=== PATIENT | female | born 1995 | race Caucasian/White ===

== ENCOUNTER 2017-05-07 09:51 | Emergency (ER) | payer OTHER ==
--- NOTE | 2017-05-07 10:46 | EDPHY ---
[facility] General Narrative: CHIEF COMPLAINT: suicidal ideation HISTORY OF PRESENT ILLNESS: 21-year-old female presents to the emergency department voluntarily for increasing suicidal thoughts over the last week. Patient has a history of bipolar disorder and anxiety, she is taking her medication as prescribed. She reports increased life stressors and increased suicidal thoughts. She denies any plan. Patient denies drug or alcohol use. She denies homicidal ideations, auditory or visual hallucinations. REVIEW OF SYSTEMS: A comprehensive 10 point review of systems is otherwise negative aside from elements mentioned in the history of present illness. Physical Exam Gen: Alert and Oriented, NAD HEENT: PERRL, moist mucous membranes NECK: no meningismus CV: regular rate and regular rhythm PULM: CTAB, no wheezes ABDOMEN: soft, non tender to palpation, BS present BACK: No CVA tenderness NEURO: Neurologically grossly intact EXTREMITIES: normal appearing SKIN: no rash or break in skin on exposed skin PSYCH: SI, denies HI, denies auditory and visual hallucinations. Previous Psychiatric History: previous inpatient psychiatric admission, bipolar Smoking Status: Current some day smoker Time Patient Placed on Detainer: 10:25 Medical Decision Making: Pt evaluated by [facility]. The patient has contracted for safety and will be discharged with resources. She and her fiance are comfortable with this plan. Course: patient remained stable over course of my shift, no additional interventions, eval by [facility] - Objective Vital Signs: Initial Vital Signs Temperature (C) 36.8 C 05/07/17 10:04 Heart Rate 71 05/07/17 10:04 Respiratory Rate 20 05/07/17 10:04 Blood Pressure 112/69 05/07/17 10:04 O2 Sat (%) 96 05/07/17 10:04 O2 Delivery Mode Room Air Allergies/Adverse Reactions: acetaminophen Allergy (Verified 05/07/17 10:03) Home Medications: Medication Instructions Recorded LaMICtal 05/07/17 Trintellix 05/07/17 Xanax 05/07/17 Laboratory Results: Laboratory Results 05/07/17 11:03 05/07/17 11:03 05/07/17 05/07/17 05/07/17 11:03 11:03 10:30 WBC 3.92 10^3/uL 10^3/uL (3.80-9.50) RBC 3.55 10^6/uL L 10^6/uL (4.18-5.33) Hgb 12.2 g/dL L g/dL (12.6-16.3) Hct 36.0 % L % (38.0-47.0) MCV 101.4 fL H fL (81.5-99.8) MCH 34.4 pg H pg (27.9-34.1) MCHC 33.9 g/dL g/dL (32.4-36.7) RDW 13.4 % % (11.5-15.2) Plt Count 84 10^3/uL L 10^3/uL (150-400) MPV 11.5 fL fL (8.7-11.7) Neut % (Auto) 58.6 % % (39.3-74.2) Lymph % (Auto) 25.3 % % (15.0-45.0) Rabun % (Auto) 10.5 % % (4.5-13.0) Eos % (Auto) 4.3 % % (0.6-7.6) Baso % (Auto) 1.0 % % (0.3-1.7) Nucleat RBC Rel Count 0.0 % % (0.0-0.2) Absolute Neuts (auto) 2.30 10^3/uL 10^3/uL (1.70-6.50) Absolute Lymphs (auto) 0.99 10^3/uL L 10^3/uL (1.00-3.00) Absolute Monos (auto) 0.41 10^3/uL 10^3/uL (0.30-0.80) Absolute Eos (auto) 0.17 10^3/uL 10^3/uL (0.03-0.40) Absolute Basos (auto) 0.04 10^3/uL 10^3/uL (0.02-0.10) Absolute Nucleated RBC 0.00 10^3/uL 10^3/uL (0-0.01) Immature Gran % 0.3 % % (0.0-1.1) Immature Gran # 0.01 10^3/uL 10^3/uL (0.00-0.10) Sodium 140 mEq/L mEq/L (134-144) Potassium 4.1 mEq/L mEq/L (3.5-5.2) Chloride 107 mEq/L mEq/L (97-110) Carbon Dioxide 22 mEq/l mEq/l (22-31) Anion Gap 11 mEq/L mEq/L (8-16) BUN 7 mg/dL mg/dL (7-23) Creatinine 0.5 mg/dL L mg/dL (0.6-1.0) Estimated GFR > 60 Glucose 82 mg/dL mg/dL (70-100) Calcium 8.7 mg/dL mg/dL (8.5-10.4) Urine Test Urine Opiates Screen NEGATIVE (NEGATIVE) Urine Barbiturates NEGATIVE (NEGATIVE) Ur Phencyclidine Scrn NEGATIVE (NEGATIVE) Ur Amphetamine Screen NEGATIVE (NEGATIVE) U Benzodiazepines Scrn NEGATIVE (NEGATIVE) Urine Cocaine Screen NEGATIVE (NEGATIVE) U Marijuana (THC) Screen NON-NEGATIVE H (NEGATIVE) Ethyl Alcohol < 10 mg/dL mg/dL (0-10) 05/07/17 10:30 WBC RBC Hgb Hct MCV MCH MCHC RDW Plt Count MPV Neut % (Auto) Lymph % (Auto) Rabun % (Auto) Eos % (Auto) Baso % (Auto) Nucleat RBC Rel Count Absolute Neuts (auto) Absolute Lymphs (auto) Absolute Monos (auto) Absolute Eos (auto) Absolute Basos (auto) Absolute Nucleated RBC Immature Gran % Immature Gran # Sodium Potassium Chloride Carbon Dioxide Anion Gap BUN Creatinine Estimated GFR Glucose Calcium Urine Test NEGATIVE Urine Opiates Screen Urine Barbiturates Ur Phencyclidine Scrn Ur Amphetamine Screen U Benzodiazepines Scrn Urine Cocaine Screen U Marijuana (THC) Screen Ethyl Alcohol Departure - Departure Disposition: Home, Routine, Self-Care Clinical Impression: Severe major depression Condition: Good Instructions: Depression (ED) Additional Instructions: 1. Please follow-up with the mental health resources provided in the ED today. 2. [facility] does operate a 24/ psychiatric crisis unit located at [address] [place] [address]. The telephone number for the 24 hour crisis center is [phone]. 3. Please return to the ED if you are feeling suicidal, having thoughts of harming yourself/others or should you feel unsafe or have worsening symptoms. Referrals: Camilla Carpio MD [Primary Care Provider] - As per Instructions [facility],. [Clinic] - As per Instructions
[2017-05-07 11:08] LABS: % IMMATURE GRANULYOCYTES 0.3 % (0.0-1.1); ABSOLUTE IMMATURE GRANULOCYTES 0.01 10^3/uL (0.00-0.10); ADD DIFF? NO; ADD MORPH? NO; ADD SCAN? NO; ATYPICAL LYMPHOCYTE FLAG 10 (0-99); FRAGMENT RBC FLAG 0 (0-99); HEMOGLOBIN 12.2 g/dL (12.6-16.3); LEFT SHIFT FLG 0 (0-99); LIPEMIA HEMOLYSIS FLAG 90 (0-99); MEAN CELL HEMOGLOBIN 34.4 pg (27.9-34.1); MEAN CELL HEMOGLOBIN CONCENTR. 33.9 g/dL (32.4-36.7); MEAN CELL VOLUME 101.4 fL (81.5-99.8); MEAN PLATELET VOLUME 11.5 fL (8.7-11.7); PLATELET CLUMPS FLAG 0 (0-99); PLATELET COUNT 84 10^3/uL (150-400); RED BLOOD CELL COUNT 3.55 10^6/uL (4.18-5.33); RED CELL DISTRIBUTION WIDTH 13.4 % (11.5-15.2)
[2017-05-07 11:26] LABS: ANION GAP 11 mEq/L (8-16); CALCIUM 8.7 mg/dL (8.5-10.4); CARBON DIOXIDE 22 mEq/l (22-31); CHLORIDE 107 mEq/L (97-110); CREATININE 0.5 mg/dL (0.6-1.0); ETHANOL SERUM < 10 mg/dL (0-10); GLOMERULAR FILTRATION RATE > 60; GLUCOSE 82 mg/dL (70-100); POTASSIUM 4.1 mEq/L (3.5-5.2); SODIUM 140 mEq/L (134-144)
[2017-05-07 14:08] VITALS: BP 125/57; PULSE 88; RESP 16; TEMP 97.7; O2SAT 98
== END 2017-05-07 14:06 | disposition home or self-care (01) ==
DX: F32.2 Major depressive disorder, single episode, severe without psychotic features (principal); F17.200 Nicotine dependence, unspecified, uncomplicated
CPT/HCPCS: 80305; G0480

== ENCOUNTER → 2017-06-10 | Outpatient (CLI) | payer OTHER ==
[~2017-06-10] MED LIST: GADOBUTROL 10 ML VIAL IVP ONE
== END ==
LOC: FIMAGING 06:48
PROVIDERS: ATTEND Internal Medicine
DX: K74.60 Unspecified cirrhosis of liver (principal); D73.5 Infarction of spleen
CPT/HCPCS: A9585

== ENCOUNTER 2017-06-29 14:37 | Inpatient (IN) | payer OTHER ==
--- NOTE | 2017-06-29 14:48 | EDPHY ---
H & P Stated Complaint: abd pain, diarrhea, sent by GI Dr Ann Time Seen by Provider: 06/29/17 14:48 HPI/ROS: CHIEF COMPLAINT: Abdominal pain HISTORY OF PRESENT ILLNESS: The patient presents to the ED with several days of left upper quadrant pain. The patient has a history of biliary atresia status post biliary reconstruction as an . She has a history of splenic artery aneurysm treated with embolization in October of this year. The patient reports she has developed left upper quadrant pain nausea and moderate abdominal pain over the past day. She has developed some dark urine. The patient denies prior history of chronic abdominal pain. She complains of some pain in her left flank. The patient denies any diarrhea. She denies dysuria. She denies additional complaints. REVIEW OF SYSTEMS: A comprehensive 10 point review of systems is otherwise negative aside from elements mentioned in the history of present illness. Source: Patient Exam Limitations: No limitations - Personal History LMP (Females 10-55): Over 28 Days Ago Current Tetanus/Diphtheria Vaccine: Yes Current Tetanus Diphtheria and Acellular Pertussis (TDAP): Yes - Medical/Surgical History Hx Asthma: No Hx Chronic Respiratory Disease: No Hx Diabetes: No Hx Cardiac Disease: No Hx Renal Disease: No Hx Cirrhosis: No Hx Alcoholism: No Hx HIV/AIDS: No Hx Splenectomy or Spleen Trauma: No Other PMH: spleenic arterial embolism/kasai procedure/biliary atresia - Social History Smoking Status: Current some day smoker - Physical Exam Exam: General Appearance: Alert, no distress Eyes: Pupils equal and round no pallor or injection ENT, Mouth: Mucous membranes moist Respiratory: There are no retractions, lungs are clear to auscultation Cardiovascular: Regular rate and rhythm Gastrointestinal: Tenderness to palpation left upper quadrant, no CVA tenderness Neurological: A&O, normal motor function, normal sensory exam, normal cranial nerves Skin: Warm and dry, no rashes Musculoskeletal: Neck is supple nontender Extremities: symmetrical, full range of motion Constitutional: Initial Vital Signs Temperature (C) 36.8 C 06/29/17 14:41 Heart Rate 86 06/29/17 14:41 Respiratory Rate 16 06/29/17 14:41 Blood Pressure 133/86 H 06/29/17 14:41 O2 Sat (%) 98 06/29/17 14:41 O2 Delivery Mode Room Air Allergies/Adverse Reactions: acetaminophen Allergy (Verified 05/07/17 10:03) Home Medications: Medication Instructions Recorded LaMICtal 05/07/17 Trintellix 05/07/17 Xanax 05/07/17 Medical Decision Making - Diagnostics Imaging Results: Imaging Impressions Abdomen/Pelvis CT 06/29/17 15:47 Impression: 1. Tiny 1 mm nonobstructive calculus mid left kidney. No evidence of significant nephrolithiasis. 2. Heterogeneous attenuation of the liver similar to the prior study in this patient with history of biliary atresia and Kasai procedure. 3. Stable mild splenomegaly. Lobulated contour inferior margin of the spleen similar to prior MRI study probably from sequela of previous splenic infarction adjacent to this lobulated component. 4. Decrease in size of thrombosed splenic artery aneurysm following embolization procedure. 5. Air-filled loops of large and small bowel without significant distention. Possible mild ileus.. Attention: This CT examination is specifically designed to evaluate patients who are clinically suspected of having acute obstructive uropathy. This examination does not use radiographic contrast, and as such, provides only a limited evaluation of the abdomen, pelvis and retroperitoneum. If there is further clinical suspicion for pathological conditions other than obstructive uropathy, a complete CT evaluation of the abdomen and pelvis utilizing intravenous, oral, and rectal contrast should be considered. Findings discussed with Tenzin Barney at 17:04 hour, 06/29/2017. ED Course/Re-evaluation: This the ED with complaints of left upper abdominal pain and loose stool. The patient has a history of biliary atresia and splenic artery aneurysm which was recently embolized. The patient did have some abnormal liver function test noted several weeks ago. She did have a follow-up abdominal MRI performed which has been reviewed by Dr. Ann. The patient was taken for CT scan of the abdomen pelvis which demonstrates no evidence of any acute intra-abdominal pathology. The patient is noted to have elevations of her total bilirubin and conjugated bilirubin from several weeks ago. I discussed the case with Dr. Ann. Initially the plan would be to discharge the patient home with repeat liver function test next week. The patient however tells me she is having severe unexplained pain. She feels the pain is now migrated to the right upper quadrant. The gastroenterology service has been updated of the patient's admission to the hospital. She will be admitted by the hospitalist. Consultation was made with Dr. Grullon. I spoke with Dr. Ab Siu from Gastroenterology informing him of the patient' s admission to the hospital. Differential Diagnosis: Differential diagnosis considered includes biliary obstruction, pancreatitis, gastroenteritis, mesenteric adenitis, nephrolithiasis, ureterolithiasis - Data Points Laboratory Results: Laboratory Results 06/29/17 15:00 06/29/17 15:00 06/29/17 06/29/17 06/29/17 15:00 15:00 15:00 WBC RBC Hgb Hct MCV MCH MCHC RDW Plt Count MPV Neut % (Auto) Lymph % (Auto) Larue % (Auto) Eos % (Auto) Baso % (Auto) Nucleat RBC Rel Count Absolute Neuts (auto) Absolute Lymphs (auto) Absolute Monos (auto) Absolute Eos (auto) Absolute Basos (auto) Absolute Nucleated RBC Immature Gran % Immature Gran # Sodium 136 mEq/L mEq/L (134-144) Potassium 3.6 mEq/L mEq/L (3.5-5.2) Chloride 107 mEq/L mEq/L (97-110) Carbon Dioxide 22 mEq/l mEq/l (22-31) Anion Gap 7 mEq/L L mEq/L (8-16) BUN 7 mg/dL mg/dL (7-23) Creatinine 0.5 mg/dL L mg/dL (0.6-1.0) Estimated GFR > 60 Glucose 89 mg/dL mg/dL (70-100) Calcium 8.4 mg/dL L mg/dL (8.5-10.4) Total Bilirubin 4.2 mg/dL H mg/dL (0.1-1.4) Conjugated Bilirubin 2.9 mg/dL H mg/dL (0.0-0.5) Unconjugated Bilirubin 1.3 mg/dL H mg/dL (0.0-1.1) AST 123 IU/L H IU/L (14-46) ALT 87 IU/L H IU/L (9-52) Alkaline Phosphatase 431 IU/L H IU/L (38-126) Total Protein 7.2 g/dL g/dL (6.3-8.2) Albumin 3.4 g/dL L g/dL (3.5-5.0) Lipase 144 IU/L IU/L (23-300) Beta HCG, Qual NEGATIVE Urine Color KIRILL Urine Appearance HAZY Urine pH 5.0 (5.0-7.5) Ur Specific [place] 1.026 (1.002-1.030) Urine Protein NEGATIVE (NEGATIVE) Urine Ketones NEGATIVE (NEGATIVE) Urine Blood NEGATIVE (NEGATIVE) Urine Nitrate NEGATIVE (NEGATIVE) Urine Bilirubin TNP Urine Urobilinogen TNP Ur Leukocyte Esterase NEGATIVE (NEGATIVE) Urine RBC 1-3 /hpf /hpf (0-3) Urine WBC 5-10 /hpf H /hpf (0-3) Ur Epithelial Cells 1+ /lpf /lpf (NONE-1+) Calcium Oxalate Crystal PRESENT /hpf /hpf (NONE-1+) Urine Mucus 4+ /lpf H /lpf (NONE-1+) Urine Glucose NEGATIVE (NEGATIVE) 06/29/17 15:00 WBC 5.74 10^3/uL 10^3/uL (3.80-9.50) RBC 3.44 10^6/uL L 10^6/uL (4.18-5.33) Hgb 12.0 g/dL L g/dL (12.6-16.3) Hct 33.9 % L % (38.0-47.0) MCV 98.5 fL fL (81.5-99.8) MCH 34.9 pg H pg (27.9-34.1) MCHC 35.4 g/dL g/dL (32.4-36.7) RDW 13.2 % % (11.5-15.2) Plt Count 84 10^3/uL L 10^3/uL (150-400) MPV 12.8 fL H fL (8.7-11.7) Neut % (Auto) 63.8 % % (39.3-74.2) Lymph % (Auto) 21.3 % % (15.0-45.0) Larue % (Auto) 11.1 % % (4.5-13.0) Eos % (Auto) 3.0 % % (0.6-7.6) Baso % (Auto) 0.5 % % (0.3-1.7) Nucleat RBC Rel Count 0.0 % % (0.0-0.2) Absolute Neuts (auto) 3.66 10^3/uL 10^3/uL (1.70-6.50) Absolute Lymphs (auto) 1.22 10^3/uL 10^3/uL (1.00-3.00) Absolute Monos (auto) 0.64 10^3/uL 10^3/uL (0.30-0.80) Absolute Eos (auto) 0.17 10^3/uL 10^3/uL (0.03-0.40) Absolute Basos (auto) 0.03 10^3/uL 10^3/uL (0.02-0.10) Absolute Nucleated RBC 0.00 10^3/uL 10^3/uL (0-0.01) Immature Gran % 0.3 % % (0.0-1.1) Immature Gran # 0.02 10^3/uL 10^3/uL (0.00-0.10) Sodium Potassium Chloride Carbon Dioxide Anion Gap BUN Creatinine Estimated GFR Glucose Calcium Total Bilirubin Conjugated Bilirubin Unconjugated Bilirubin AST ALT Alkaline Phosphatase Total Protein Albumin Lipase Beta HCG, Qual Urine Color Urine Appearance Urine pH Ur Specific [place] Urine Protein Urine Ketones Urine Blood Urine Nitrate Urine Bilirubin Urine Urobilinogen Ur Leukocyte Esterase Urine RBC Urine WBC Ur Epithelial Cells Calcium Oxalate Crystal Urine Mucus Urine Glucose Medications Given: Discontinued Medications Sodium Chloride (Ns) 1,000 mls @ 0 mls/hr IV EDNOW ONE; Wide Open PRN Reason: Protocol Stop: 06/29/17 14:54 Last Admin: 06/29/17 15:18 Dose: 1,000 mls Morphine Sulfate (Morphine) 4 mg IVP EDNOW ONE Stop: 06/29/17 15:23 Last Admin: 06/29/17 15:31 Dose: 4 mg Morphine Sulfate (Morphine) 4 mg IVP EDNOW ONE Stop: 06/29/17 16:14 Last Admin: 06/29/17 16:19 Dose: 4 mg Ondansetron HCl (Zofran) 4 mg IVP EDNOW ONE Stop: 06/29/17 15:33 Last Admin: 06/29/17 15:35 Dose: 4 mg Departure - Departure Disposition: [facility] Inpatient Acute Clinical Impression: Abdominal pain, Biliary atresia, Abnormal liver function test Condition: Good Referrals: Jeremiah Sifuentes [Primary Care Provider] - As per Instructions
[2017-06-29] MEDS ORDERED: NS 1,000 ML IV ONE (14:53)
[2017-06-29 15:08] LABS: % IMMATURE GRANULYOCYTES 0.3 % (0.0-1.1); ABSOLUTE IMMATURE GRANULOCYTES 0.02 10^3/uL (0.00-0.10); ADD DIFF? NO; ADD MORPH? NO; ADD SCAN? NO; ATYPICAL LYMPHOCYTE FLAG 20 (0-99); FRAGMENT RBC FLAG 0 (0-99); HEMATOCRIT 33.9 % (38.0-47.0); LEFT SHIFT FLG 0 (0-99); LIPEMIA HEMOLYSIS FLAG 90 (0-99); MEAN CELL HEMOGLOBIN 34.9 pg (27.9-34.1); MEAN CELL HEMOGLOBIN CONCENTR. 35.4 g/dL (32.4-36.7); MEAN CELL VOLUME 98.5 fL (81.5-99.8); MEAN PLATELET VOLUME 12.8 fL (8.7-11.7); PLATELET CLUMPS FLAG 10 (0-99); PLATELET COUNT 84 10^3/uL (150-400); RED BLOOD CELL COUNT 3.44 10^6/uL (4.18-5.33); RED CELL DISTRIBUTION WIDTH 13.2 % (11.5-15.2)
[2017-06-29 15:19] LABS: ALANINE AMINOTRANSFERASE 87 IU/L (9-52); ALBUMIN 3.4 g/dL (3.5-5.0); ALKALINE PHOSPHATASE 431 IU/L (38-126); ANION GAP 7 mEq/L (8-16); ASPARTATE AMINOTRANSFERASE 123 IU/L (14-46); BILIRUBIN,TOTAL 4.2 mg/dL (0.1-1.4); BILIRUBIN-CONJUGATED 2.9 mg/dL (0.0-0.5); BILIRUBIN-UNCONJUGATED 1.3 mg/dL (0.0-1.1); CALCIUM 8.4 mg/dL (8.5-10.4); CARBON DIOXIDE 22 mEq/l (22-31); CHLORIDE 107 mEq/L (97-110); CREATININE 0.5 mg/dL (0.6-1.0); GLOMERULAR FILTRATION RATE > 60; GLUCOSE 89 mg/dL (70-100); POTASSIUM 3.6 mEq/L (3.5-5.2); SODIUM 136 mEq/L (134-144); TOTAL PROTEIN 7.2 g/dL (6.3-8.2)
[2017-06-29] MEDS ORDERED: ONDANSETRON 4 MG/2 ML VIAL IVP ONE (15:32)
[2017-06-29 15:54] LABS: COLOR AMBER; LEUKOCYTE ESTERASE,URINE NEGATIVE (NEGATIVE); NITRITE,URINE NEGATIVE (NEGATIVE)
[2017-06-29 16:02] LABS: MUCUS 4+ /lpf (NONE-1+)
[2017-06-29] MEDS ORDERED: oxyCODONE IR 5 MG TAB PO ONE (18:09)
--- NOTE | 2017-06-29 21:51 | HOSPPROG ---
Hospitalist Progress Note Assessment/Plan: HISTORY: This patient with chronic abdominal issues, comes in to the ER with new symptoms that started 3 days ago. She has new onset of frequent loose stools, with no fever or blood, and has some sharp and crampy pain migrating back and forth across her upper abdomen. No nausea or vomiting, no blood instool, no sob , no urinary sxs. No recent travel, no intake of outdoor huynh, no suspicious foods eaten, no ill contacts. 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 She had a stent placed in a splenic artery aneurysm recently, and has received a diagnosis of cirrhosis, the cause of which is not known to me at present. She has chronic elevations of liver enzymes including TAs and alk phos. She has chronic vague L mid abdominal ache with eating which became a bit worse around 3 months ago. Since then she is using cannabis oils with partial relief of that symptom. 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 Vital signs: normal with no fever Exam: alert oriented mildly anxious skin warm and dry, very mild jaundice resps easy lungs clear heart reg abd soft nondistended, +BS, some tenderness in epigastrium with no rebound or guarding, no hernia ormass extremities normal lab data: Mild AST, ALT, and Alk Phos increases, all better than 2 weeks ago Her bilirubin is 4 with baseline of 2 CT abdomen done in ER without contrast (?concern there for a stone), I have reviewed images, there is no obstruction, no inflammation, no ascites, no abscess, a tiny L renal stone is present IMPRESSION: -likely viral gastroenteritis as cause of diarrhea -increase in bilirubin could be viral or related to her chronic abdominal issues -hx of cirrhosis and biliary atresia, seems stable at present -renal stone present, lifelong daily adequate hydration important PLANS: -observation stay for pain management and hydration -GI pathogen panel -repeat liver panel in am -stressed lifelong daily hydration due to renal stone Objective: Vital Signs Temp Pulse Resp BP Pulse Ox 37.2 C 83 18 122/67 H 96 06/29/17 20:53 06/29/17 20:53 06/29/17 20:53 06/29/17 20:53 06/29/17 20:53 06/28/17 06/29/17 06/30/17 06:59 06:59 06:59 Intake Total 1000 Balance 1000 ICD10 Worksheet Patient Problems: Problems Problem Status Onset Abdominal pain Acute Abnormal liver function test Acute Biliary atresia Acute
[2017-06-29] MEDS ORDERED: ZOLPIDEM TARTRATE 5 MG TAB PO PRN (21:52)
[2017-06-29] MEDS ORDERED: NS 1,000 ML IV SCH (22:00)
[2017-06-29] MEDS: ONDANSETRON 4 MG/2 ML VIAL IVP PRN (22:27)
[2017-06-29] MEDS: HYDROmorphone HCL/NS/PF 0.4 MG/2 ML SYR IVP PRN (22:27)
[2017-06-29] MEDS ORDERED: QUEtiapine FUMARATE 50 MG TAB PO PRN (22:59)
[2017-06-30] MEDS: HYDROmorphone HCL/NS/PF 0.4 MG/2 ML SYR IVP PRN ×4 (02:28→15:26)
[2017-06-30 05:16] LABS: % IMMATURE GRANULYOCYTES 0.3 % (0.0-1.1); ABSOLUTE IMMATURE GRANULOCYTES 0.01 10^3/uL (0.00-0.10); ADD DIFF? NO; ADD MORPH? NO; ADD SCAN? NO; ATYPICAL LYMPHOCYTE FLAG 30 (0-99); FRAGMENT RBC FLAG 0 (0-99); HEMATOCRIT 29.2 % (38.0-47.0); HEMOGLOBIN 10.2 g/dL (12.6-16.3); LEFT SHIFT FLG 0 (0-99); LIPEMIA HEMOLYSIS FLAG 90 (0-99); MEAN CELL HEMOGLOBIN 34.9 pg (27.9-34.1); MEAN CELL HEMOGLOBIN CONCENTR. 34.9 g/dL (32.4-36.7); MEAN PLATELET VOLUME 12.8 fL (8.7-11.7); PLATELET CLUMPS FLAG 0 (0-99); PLATELET COUNT 55 10^3/uL (150-400); RED BLOOD CELL COUNT 2.92 10^6/uL (4.18-5.33); RED CELL DISTRIBUTION WIDTH 13.1 % (11.5-15.2)
[2017-06-30 05:32] LABS: ALANINE AMINOTRANSFERASE 67 IU/L (9-52); ALBUMIN 2.4 g/dL (3.5-5.0); ALKALINE PHOSPHATASE 310 IU/L (38-126); ANION GAP 7 mEq/L (8-16); ASPARTATE AMINOTRANSFERASE 85 IU/L (14-46); BILIRUBIN,TOTAL 3.8 mg/dL (0.1-1.4); CALCIUM 7.5 mg/dL (8.5-10.4); CARBON DIOXIDE 23 mEq/l (22-31); CHLORIDE 110 mEq/L (97-110); CREATININE 0.5 mg/dL (0.6-1.0); GLOMERULAR FILTRATION RATE > 60; GLUCOSE 76 mg/dL (70-100); POTASSIUM 3.4 mEq/L (3.5-5.2); SODIUM 140 mEq/L (134-144); TOTAL PROTEIN 5.6 g/dL (6.3-8.2)
[2017-06-30 06:10] LABS: BILIRUBIN-CONJUGATED 2.5 mg/dL (0.0-0.5); BILIRUBIN-UNCONJUGATED 1.3 mg/dL (0.0-1.1)
[2017-06-30] MEDS: diphenhydrAMINE 25 MG CAP PO PRN ×3 (08:51→22:57)
[2017-06-30] MEDS: ONDANSETRON 4 MG/2 ML VIAL IVP PRN (11:13)
--- NOTE | 2017-06-30 11:41 | ASMTCMCOM ---
CM Note CM Note Notes: Spoke w/RN, anticipate pt will dc home w/support of boyfriend when medically stable. CM available for any changes. Date Signed: 06/30/2017 11:40 AM Electronically Signed By:Tuyet Abdul RN
--- NOTE | 2017-06-30 13:55 | HOSPPROG ---
Hospitalist Progress Note Assessment/Plan: 22-year-old female presents emergency room complaints of abdominal pain. Long- standing history of abdominal issues. 1st encounter, chart reviewed. Discussed with Dr. Siu of Gastroenterology. # abdominal pain Improved today In the setting of chronic abdominal issues Appreciate Dr. Siu Continue supportive care No intention for intervention at this time # elevated LFTs Close to baseline Improving # history of biliary atresia and splenic aneurysm Appears stable # anemia Stable # disposition Changed to inpatient status Patient requiring overnight observation Further evaluation in the hospital setting required Unable to tolerate oral intake at this time For discharge in 1-2 days of improving Subjective: Feeling a bit better this morning. Still having some abdominal pain. Anxious about situation. Objective: Vital Signs Temp Pulse Resp BP Pulse Ox 37 C 76 12 128/78 H 98 06/30/17 08:00 06/30/17 08:00 06/30/17 08:00 06/30/17 08:00 06/30/17 08:00 Laboratory Results 06/30/17 04:48 06/30/17 04:48 06/29/17 06/30/17 07/01/17 05:59 05:59 05:59 Intake Total 1000 Balance 1000 - Physical Exam Constitutional: no apparent distress, appears nourished, uncomfortable Eyes: PERRL, anicteric sclera, EOMI Ears, Nose, Mouth, Throat: moist mucous membranes, hearing normal, ears appear normal Cardiovascular: regular rate and rhythym, No JVD, No edema Respiratory: no respiratory distress, no rales or rhonchi, reduced air movement Gastrointestinal: tenderness, No ascites, No guarding Skin: warm, normal color, No erythema Musculoskeletal: full muscle strength, normal joint ROM, no joint effusions Neurologic: AAOx3 Psychiatric: interacting appropriately, not encephalopathic, thought process linear ICD10 Worksheet Patient Problems: Problems Problem Status Onset Abdominal pain Acute Biliary atresia Acute Abnormal liver function test Acute
--- NOTE | 2017-06-30 15:53 | PDMN ---
Medical Necessity Medical necessity: M05 abd pain undg. elevated LFT's, anemia, unable to tolerate PO at this time, further monitoring and tx needed > 2 midnights pt still receiving IV pain meds, IV Zofran, IVF
[2017-06-30] MEDS: oxyCODONE IR 5 MG TAB PO PRN ×2 (18:56→22:57)
[2017-06-30] MEDS ORDERED: IOPAMIDOL (ISOVUE-300) 100 ML BTL ONE (20:02)
[2017-06-30] MEDS ORDERED: lamoTRIgine 100 MG TAB PO SCH (21:00)
[2017-06-30] MEDS ORDERED: LITHIUM CARBONATE ER 300 MG TAB PO SCH (21:00)
[2017-06-30] MEDS ORDERED: QUEtiapine FUMARATE 50 MG TAB PO SCH (21:00)
--- NOTE | 2017-06-30 21:08 | GCON ---
[f rep st] CONSULTATION DATE OF CONSULTATION: 06/30/2017 REFERRING PHYSICIAN: Venkat Grullon MD REASON FOR CONSULTATION: Thank you very kindly for asking me to evaluate this patient in consultatio n for a chief complaint of abdominal pain. HISTORY OF PRESENT ILLNESS: She was admitted yesterday through the emergency room after being sent t here by our office for increased amount of epigastric left-sided and right-sided abdominal pain that was described as severe. The patient has a very complex past medical history, with congenital biliar y atresia, who underwent a diverting Kasai procedure at 3 weeks of life (hepaticoportojejunostomy). She has had complications of the development of cirrhosis based on a liver biopsy 2 years ago. She i s known to have varices, and enlarged spleen which has been complicated by a splenic artery aneurysm that was embolized in October at [facility] in [place]. It sounds like there had bee n a change in the size of her splenic aneurysm from 4 to about 6 cm that was associated with left upp er quadrant abdominal pain, so the decision was made to embolize it. This is of relevance because elizabet darby had a significant amount of abdominal pain and even diarrhea after the embolization. Currently, the patient's pain is better. She had a CT scan without contrast of the abdomen and pelvi s on admission thinking perhaps she had a kidney stone, and while this did show a small 4 mm stone in the left kidney, it was nonobstructing. Her urine did have calcium oxalate crystals. While the CT was not normal, given her enlarged spleen and aneurysm and other findings, these were stable without major differences from her previous imaging and no acute process was found to explain her abdominal p ain. She had been noted in the ER also to have a slight increase in her bilirubin from baseline, wit h a total bilirubin of 4.2 and some mild transaminitis. These have improved again this morning back to baseline, which I believe is due to her chronic cirrhosis. She denies any change in mental status , fever, nausea, vomiting, hematochezia or melena. She had noted the onset of some loose, somewhat m ore frequent stool patterning with the onset of the pain but has not had any further bowel movements since admission. I am asked to assist with further evaluation and management. PAST MEDICAL HISTORY: 1. Significant for congenital biliary atresia. 2. Cirrhosis, likely related to the same process due to chronic biliary obstruction despite its dive rsion surgically at a young age. 3. Portal hypertension complicated by varices. 4. 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 5. Splenic artery aneurysm status post embolization in October of this year. 6. Depression and anxiety disorder. PAST SURGICAL HISTORY: A Kasai procedure (hepaticoportojejunostomy), splenic artery embolization. FAMILY HISTORY: Negative for liver disease. MEDICATIONS: Admissions include Lamictal, Trintellix and Xanax. 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 She is single but has a stabl e significant other. She is permanently a resident in [place], [place]. She smokes occasionally. No alcoholism. No history of substance abuse. REVIEW OF SYSTEMS: CONSTITUTIONAL: Denies fever, chills, weight loss, or night sweats. Denies phyllis dice. HEENT: No headache, visual disturbances, difficulty swallowing, rhinorrhea or ear pain. PULM ONARY: No cough or shortness of breath. CARDIOVASCULAR: No chest pain or palpitations. GI: She h as reported some loose stools without blood. Generalized abdominal pain involving both the right and left side as well as the lower left quadrant. She says this is a sharp stabbing pain with some cram ping overtones. They can become quite intense and be close to an 8/10 in severity. RHEUMATOLOGIC: No joint pain or swelling. DERMATOLOGIC: No jaundice, rash or pruritus. NEUROLOGIC: No difficulti es with thinking or cognition. No paresthesias. No seizures. No falls. No tremor. GENITOURINARY: No dysuria, hematuria, or flank pain. GYNECOLOGIC: No vaginal discharge or bleeding. A test from the ER was negative. PHYSICAL EXAM: VITAL SIGNS: Blood pressure 128/78 with a pulse of 76, respirations are 12, oxygenat ion 98% on room air. Temperature is 37. GENERAL: Anxious female in no acute distress. Intermitten tly tearful during the exam. HEENT: Sclerae have very mild icterus. No erythema. Neck is supple. Oropharynx is clear. No lymphadenopathy to the anterior or posterior cervical chain. LUNGS: Clear to auscultation bilaterally. CARDIOVASCULAR: Regular rate and rhythm without murmur, rub, or brice p. ABDOMEN: Soft, scaphoid. Normal bowel sounds. Right upper quadrant surgical scar is well heale d without herniation. Diffuse tenderness to palpation, worse in the left lower quadrant. No rebound or guarding. I cannot palpate an enlarged liver but I believe the spleen tip is palpable and slight ly tender. No abdominal bruit. No ascites. EXTREMITIES: Normal gait and station without joint def ormities. SKIN: Is tattooed without overt jaundice or rash. No hives. NEUROLOGIC: Alert to perso n, place, and time. Cranial nerves normal. No asterixis. Nonfocal motor exam. Gait is not ataxic. DATABASE: Includes the following. White blood count is 3.7, hematocrit is 29.2 with an MCV of 100, platelets are 55. Sodium 140, potassium 3.4, chloride 110, bicarbonate 23, BUN is 5, creatinine 0.5, total bilirubin is 3.8, AST is 85, ALT 67, alkaline phosphatase is 310, albumin 2.4. Beta HCG is ne gative. Urinalysis is positive for calcium oxalate crystals, 5-10 white cells, negative leukocyte es terase, negative nitrate, negative glucose, negative blood. IMAGING: Includes a CT scan of the abdomen and pelvis without oral or IV contrast. There is a tiny 1 mm nonobstructing calculus in the midportion of the left kidney. No other renal calculi are seen. The ureters are nondilated. The bladder is normal in contour. The lungs bases are clear. The live r is diffusely heterogeneous with an increased coarse echotexture likely related to chronic cirrhosis . The spleen is enlarged at 13 x 11 x 7 cm. There is a lobulated component in the inferior aspect o f the spleen that is similar to previous recent MRI. The splenic artery aneurysm is decreased in siz e, now measuring 5 x 3.4 (previously 7 x 4.3 cm) with embolization coils in the posterior margins of the aneurysm. Numerous collateral vessels are seen within the left side of the mesentery of the abdo men and pelvis, likely representing varices. The gallbladder is normal. The biliary system is nondi lated. There is no aortic aneurysm. The pancreas appears structurally normal. The appendix is norm al. The uterus is normal. There were no adnexal masses. There are some small gas-filled loops of l arge and small bowel without distention, thickening or fluid levels. No lytic or sclerotic osseous l esions. IMPRESSION: 1. Diffuse abdominal pain. 2. Cirrhosis related to chronic biliary obstruction that is congenital. 3. Biliary atresia status post Kasai procedure. 4. 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 5. Diarrhea which has now resolved. 6. Chronically elevated LFTs likely due to cirrhosis and intrinsic biliary disease. 7. Thrombocytopenia also from cirrhosis. RECOMMENDATIONS: 1. Conservative management at this time. I do not believe further imaging needs to be done. The ca use of her pain is unknown to me but when discussing this with her, it seems to be an exacerbation mo re acutely of a chronic pain type problem that she has been having episodically. This may have been triggered by the pseudoaneurysm that was embolized as she did have a lot of pain and diarrhea during that event in October. She also described a food-borne illness in the past that resulted in some prett y significant pain and diarrhea and there may be a component of functional irritable bowel diarrhea p redominance here. 2. I did not find any other concerning features on her laboratory evaluation or current imaging or w orkup that would concern me. 3. I do not believe she warrants any surgical consultation. 4. I will discuss the radiographic findings of her aneurysm with Interventional Radiology to see if there is any further care that this needs, although I would tend to feel that the diminished size of the aneurysm and previous coiling may be enough. 5. I would treat her pain symptomatically at this time. 6. Diet is as tolerated. 7. Repeat LFTs in the morning. They are improved and chronically elevated again due to cirrhosis an d not that different from previous. 8. I do not believe she needs any endoscopic evaluation of the pain at this time. 9. I have discussed this care plan with Dr. Lamont Ann, her meteorology faculty member, who is in agreement wit h the plan. 10. If her symptoms markedly exacerbate or do not continue to improve as I suspect, then I will repe at her CT scan of the abdomen and pelvis with triple phase contrast to see if there is some other pro blem that is not highlighted on the noncontrasted CT. 11. If she continues to have diarrhea, a stool specimen will be checked for C diff and infection. Thank you very kindly for allowing me to be involved in the care for this patient. She is agreeable with the current care strategy. Please call with any questions. /[id number]/MODL
[2017-06-30 22:55] VITALS: RESP 16
[2017-07-01] MEDS: oxyCODONE IR 5 MG TAB PO PRN ×3 (03:00→11:16)
[2017-07-01] MEDS: ONDANSETRON 4 MG/2 ML VIAL IVP PRN ×2 (03:04→03:43)
[2017-07-01] MEDS: diphenhydrAMINE 25 MG CAP PO PRN (06:43)
[2017-07-01 07:58] VITALS: BP 130/59; PULSE 83; TEMP 98.6; O2SAT 93
--- NOTE | 2017-07-01 09:27 | SOAPPROG ---
ELIAS Progress Note Assessment/Plan: Assessment: 1. LUQ and LLQ pain 2. Splenic infarct 3. Congenital biliary atresia s/p Kasai 4. Spenic artery aneurysm s/p coiling in October 2016 Plan: 1. Miralax 17 gm daily 2. Colace 100mg daily 3. Oral pain medications to help with outpatient resolution of splenic infarct. 4. GI f/u with Dr. Ann in 2 weeks 5. Ok for d/c today 07/01/17 09:24 Subjective: CC: Less pain today. CT done with splenic infarct. Likely the cause for pain Constipated today. Objective: Vital Signs Temp Pulse Resp BP Pulse Ox 37.0 C 83 16 130/59 H 93 07/01/17 07:58 07/01/17 07:58 07/01/17 07:58 07/01/17 07:58 07/01/17 07:58 06/30/17 07/01/17 07/02/17 05:59 05:59 05:59 Intake Total 1520 Balance 1520 Physical Exam - Physical Exam General Appearance: WD/WN, no apparent distress EENT: pharynx normal Neck: supple Respiratory: lungs clear Cardiac/Chest: regular rate, rhythm Abdomen: non-tender, soft, organomegaly (palpable spleen with mild tenderness), No distended, No guarding, No rebound, No ascites ICD10 Worksheet Patient Problems: Problems Problem Status Onset Abdominal pain Acute Abnormal liver function test Acute Biliary atresia Acute
--- NOTE | 2017-07-01 10:12 | HOSPPROG ---
Hospitalist Progress Note Assessment/Plan: 22-year-old female presents emergency room complaints of abdominal pain. Long- standing history of abdominal issues. 1st encounter, chart reviewed. Discussed with Dr. Siu of Gastroenterology. # abdominal pain/left upper quadrant left lower quadrant Improved today In the setting of chronic abdominal issues Appreciate Dr. 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 Will continue pain medications and till she gets resolution of the splenic infarct. Follow up with Dr. Ann in 2 weeks. Has an appointment with her PCP/ explained to her to avoid all alcohol Subjective: Kat says pain is well managed on oxy. Objective: Vital Signs Temp Pulse Resp BP Pulse Ox 37.0 C 83 16 130/59 H 93 07/01/17 07:58 07/01/17 07:58 07/01/17 07:58 07/01/17 07:58 07/01/17 07:58 06/30/17 07/01/17 07/02/17 05:59 05:59 05:59 Intake Total 1520 Balance 1520 - Physical Exam Constitutional: no apparent distress, appears nourished, not in pain Eyes: PERRL Ears, Nose, Mouth, Throat: hearing normal Cardiovascular: regular rate and rhythym Respiratory: no respiratory distress Gastrointestinal: normoactive bowel sounds, soft, non-tender abdomen Skin: warm, normal color Musculoskeletal: full muscle strength Neurologic: AAOx3 Psychiatric: interacting appropriately, not anxious ICD10 Worksheet Patient Problems: Problems Problem Status Onset Abdominal pain Acute Abnormal liver function test Acute Biliary atresia Acute
--- NOTE | 2017-07-01 11:24 | ASMTCMCOM ---
CM Note CM Note Notes: Received call from Alem Isidro at Dr Prater office, pt has an appt today at 3pm. CM spoke with pt and she will keep appt. CM also notified Alem that pt was given a RX of 30 oxy IR. Pt will stay in hospital until her appointment, CM offered a buspass home as is at work until 8:30 but states she may get a ride from a friend. CM available for any changes. Date Signed: 07/01/2017 11:23 AM Electronically Signed By:Tuyet Abdul RN
--- NOTE | 2017-07-01 13:02 | GDS ---
[f rep st] DISCHARGE SUMMARY DISCHARGE DIAGNOSES: 1. Abdominal pain, notably in the left upper and left lower quadrant area. 2. Elevated liver function tests. 3. History of congenital biliary atresia status post Kasai. 4. Splenic artery aneurysm status post coiling in October 2016. 5. Anemia. 6. Chronic cirrhosis. 7. 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 CONSULTATIONS: Ab Siu MD. HISTORY OF PRESENT ILLNESS: Briefly, the patient is a 22-year-old female who was seen at the gastroe nterology office for increased amount of left epigastric pain that was severe. She has a complex med ical history. She has congenital biliary atresia, who underwent a diverting Kasai procedure at 3 wee ks of life. She has had complications of development of cirrhosis based on a liver biopsy 2 years ag o. She also has known varices and enlarged spleen, which has been complicated by a splenic artery an eurysm that was embolized in October in the [place] area. She had a CT scan without contrast, think ing that maybe she had a kidney stone. The recommendation was to get a CT scan with contrast for fur ther evaluation. This showed chronic cirrhosis as well as chronic occlusion of the left portal vein with numerous large portosystemic collateral veins. It shows an embolization of the left splenic art luke aneurysm with reduction in size of the thrombosed aneurysm sac. She also has an infarction of th e anterior inferior margin of the spleen, and a 2 mm stone is within the left kidney. Today, she is feeling markedly better. Her pain should improve in regard to the splenic infarct. She will be disc harged home on pain medications. I have instructed the patient to be very careful and regard to usin g narcotics out of concern of being addicted to these medications. Recommendation is further follow up with Dr. Ann. She has an appointment with her primary care provider this afternoon. HOSPITAL COURSE: Per problem: 1. Abdominal pain. This is in the setting of chronic abdominal issues. There is no intervention to be done at this time. 2. Elevated liver function tests. Further follow up with GI. 3. History of congenital biliary atresia. Further follow up with Dr. Ann. 4. Splenic artery aneurysm status post coiling in October 2016. A CT scan was performed, which showed an infarct to the anterior inferior margin of the spleen. 5. Anemia, stable. 6. Chronic cirrhosis, on the transplant list. Reviewed with her the importance of not drinking any alcohol. 7. 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 DISCHARGE CONDITION: Stable. Blood pressure is 130/59, heart rate is 83, respiratory rate is 16, O2 sats on room air 93%, temperat ure is 37 degrees Celsius. MEDICATIONS AT DISCHARGE: Please see the EMR. DISCHARGE INSTRUCTIONS: 1. Follow up with Dr. Ann in 1-2 weeks. 2. Take MiraLAX and Colace daily. 3. Use the OxyIR as needed for pain. She is not to drink or drive while on the medication. Greater than 30 minutes discharging and coordinating patient's care. /[id number]/MODL
[2017-07-01 15:47] LABS: LITHIUM < 0.2 mEq/L (0.6-1.2)
--- NOTE | 2017-07-01 16:28 | ASDISCHSUM ---
Discharge Information Plan Status:Home with No Needs Medically Cleared to Leave: Discharge Date:07/01/2017 03:16 PM CM D/C Disposition:Home, Routine, Self-Care ADT D/C Disposition:Home, Routine, Self-Care Projected Discharge Date:07/01/2017 03:16 PM Transportation at D/C:Friend Discharge Delay Reason: Follow-Up Date:07/01/2017 03:16 PM Discharge Slot: Final Diagnosis: Placement Information Patient Contact Information Contact Name:AVEL Relationship:Other Address:[address] [place] [address] Work Phone: City:[place] Alternate Phone: [facility]/Zip Code:[place] [address] Email: Financial Information Financial Class:HMO and PPO Plans Primary Plan Desc:[employer] PPO POS HMO SIG ADM Primary Plan Number:[id number] Secondary Plan Desc: Secondary Plan Number: Assessment Information [facility] Progress Note CM Note CM Note Notes: Spoke w/RN, anticipate pt will dc home w/support of boyfriend when medically stable. CM available for any changes. Date Signed: 06/30/2017 11:40 AM Electronically Signed By:Tuyet Abdul RN [facility] CM Progress Note CM Note CM Note Notes: Received call from Alem Isidro at Dr Prater office, pt has an appt today at 3pm. CM spoke with pt and she will keep appt. MAGED also notified Alem that pt was given a RX of 30 oxy IR. Pt will stay in hospital until her appointment, CM offered a buspass home as is at work until 8:30 but states she may get a ride from a friend. CM available for any changes. Date Signed: 07/01/2017 11:23 AM Electronically Signed By:Tuyet Abdul RN Intervention Information
== END 2017-07-01 15:16 | disposition home or self-care (01) | DRG 816 ==
LOC: F3E 20:40 → OBSVTOIN 06-30 13:57
PROVIDERS: ADMIT Internal Medicine; ATTEND Internal Medicine
DX: D73.5 Infarction of spleen (principal); K74.69 Other cirrhosis of liver; F41.9 Anxiety disorder, unspecified; F31.9 Bipolar disorder, unspecified
CPT/HCPCS: 80175-90; 96374; G0378; J1170; J1200; J2405; Q9967

== ENCOUNTER → 2017-07-15 | Outpatient (CLI) | payer OTHER | LOC: FIMAGING 19:28 | PROVIDERS: ATTEND Internal Medicine | DX: K74.60 Unspecified cirrhosis of liver (principal); K76.6 Portal hypertension | CPT/HCPCS: A9585 ==

== ENCOUNTER 2017-09-11 12:45 | Emergency (ER) | payer OTHER ==
[2017-09-11] MEDS ORDERED: LIDOCAINE 2% VISCOUS 15 ML UDCUP PO ONE (13:43)
[2017-09-11] MEDS ORDERED: NS 1,000 ML IV ONE (13:43)
[2017-09-11] MEDS ORDERED: HYOSCYAMINE SULFATE 0.125 MG TAB PO ONE (13:43)
[2017-09-11] MEDS ORDERED: HYDROmorphONE/DILAUDID 1 MG/ML INJ IVP ONE (13:43)
[2017-09-11] MEDS ORDERED: MAG HYDROX/AL HYDROX/SIMETH 30 ML UDCUP PO ONE (13:43)
[2017-09-11] MEDS ORDERED: ONDANSETRON 4 MG/2 ML VIAL IVP ONE (13:43)
--- NOTE | 2017-09-11 13:48 | EDPHY ---
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 She is followed by Dr. Jeffery from [facility]. 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 She states that she has chronic left upper quadrant pain and a sense of fullness that did not improve with the spleen embolization but has persisted. Occasionally it seems to worsen. She states that over the last week it has been intermittently worse. She saw her gastrologist on Wednesday who ordered Prilosec which she has not yet filled as well as a CT angio of her abdomen and pelvis because her her history of aneurysm. She has not yet had this done either because it was called to the wrong hospital. She moved here recently from [place]. She is here requesting the CT angio as well as pain medication and workup. She has felt nauseous but has not vomited. No diarrhea. No fever. She does have a sensation of heartburn. No chest pain or shortness of breath. She does have some left shoulder pain when she takes a deep breath. REVIEW OF SYSTEMS: Constitutional: denies: chills, fever, recent illness, recent injury EENTM: denies: blurred vision, double vision, nose congestion Respiratory: denies: cough, shortness of breath Cardiac: denies: chest pain, irregular heart rate, lightheadedness, palpitations Gastrointestinal/Abdominal: See HPI Genitourinary: denies: dysuria, frequency, hematuria, pain Musculoskeletal: denies: joint pain, muscle pain Skin: denies: lesions, rash, jaundice, bruising Neurological: denies: headache, numbness, paresthesia, tingling, dizziness, weakness Hematologic/Lymphatic: See HPI Immunologic/allergic: denies: HIV/AIDS, transplant EXAM: GENERAL: Well-appearing, well-nourished and in no acute distress. HEAD: Atraumatic, normocephalic. EYES: Pupils equal round and reactive to light, extraocular movements intact, sclera anicteric, conjunctiva are normal. ENT: TMs normal, nares patent, oropharynx clear without exudates. Moist mucous membranes. NECK: Normal range of motion, supple without lymphadenopathy or JVD. LUNGS: Breath sounds clear to auscultation bilaterally and equal. No wheezes rales or rhonchi. HEART: Regular rate and rhythm without murmurs, rubs or gallops. ABDOMEN: Soft, nontender, normoactive bowel sounds. Scars well healed, No guarding, no rebound. No masses appreciated. BACK: No CVA tenderness, no spinal tenderness, step-offs or deformities EXTREMITIES: Normal range of motion, no pitting or edema. No clubbing or cyanosis. NEUROLOGICAL: Cranial nerves II through XII grossly intact. Normal speech, normal gait. 5/5 strength, normal movement in all extremities, normal sensation PSYCH: Normal mood, normal affect. SKIN: Warm, dry, normal turgor, no visible rashes or lesions. Source: Patient Exam Limitations: No limitations - Personal History LMP (Females 10-55): Irregular Current Tetanus/Diphtheria Vaccine: Yes Current Tetanus Diphtheria and Acellular Pertussis (TDAP): Yes Tetanus Vaccine Date: < 10 years - Medical/Surgical History Hx Asthma: No Hx Chronic Respiratory Disease: No Hx Diabetes: No Hx Cardiac Disease: No Hx Renal Disease: No Hx Cirrhosis: No Hx Alcoholism: No Hx HIV/AIDS: No Hx Splenectomy or Spleen Trauma: No Other PMH: spleenic arterial embolism/kasai procedure/biliary atresia, portal hypertension, peptic ulcer disease - Social History Smoking Status: Current some day smoker Constitutional: Initial Vital Signs Temperature (C) 36.5 C 09/11/17 12:49 Heart Rate 76 09/11/17 12:49 Respiratory Rate 18 09/11/17 12:49 Blood Pressure 121/73 H 09/11/17 12:49 O2 Sat (%) 99 09/11/17 12:49 O2 Delivery Mode Room Air Allergies/Adverse Reactions: acetaminophen Allergy (Verified 09/11/17 12:48) Home Medications: Medication Instructions Recorded [place] Carbonate ER [Lithobid 300 300 mg PO HS 17 mg (*)] QUEtiapine FUMARATE [Seroquel 50 50 mg PO HS 17 mg (*)] QUEtiapine FUMARATE [Seroquel 50 50 mg PO HS PRN 17 mg (*)] lamoTRIgine [LamICTAL 100 MG (*)] 100 mg PO HS 06/29/17 Lidocaine 2% Viscous 15 ml PO Q4-6PRN PRN #150 ml 09/11/17 Oxycodone HCl [Dazidox] 5 mg PO Q4-6PRN PRN #10 tablet 09/11/17 Medical Decision Making - Diagnostics Imaging Results: Imaging Impressions Abdomen/Pelvis CTA 09/11/17 13:44 Impression: 1. No evidence of abdominal aortic or pelvic aneurysm or dissection. 2. 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 3. Lobulated right lobe of the liver with heterogeneous enhancement during arterial phase and is severe atrophy of the left lobe liver in this patient with history of cirrhosis. 4. Mild splenomegaly. 5. Numerous collateral vessels around the left kidney and left central mesentery with chronic portal venous thrombosis. 6. Mild constipation similar to the prior studies. 7. Mildly enlarged kidneys bilaterally without focal abnormality. Rule out underlying nephropathy. Findings discussed with Campos Aggarwal M.D. at 16:26 hour, 09/11/2017. Imaging: Discussed imaging studies w/ bingo caller Radiologist ED Course/Re-evaluation: 4:45 p.m. we discussed the patient's lab and imaging results which are reassuring. She would like to go home and is requesting a prescription for the GI cocktail. She states that that worked very well for her. She is also requesting a referral to [facility]. I will also contact her pediatric dietician Dr. Ann. 6:00 p.m. I discussed the case with Dr. Tye George who will help facilitate follow-up early next week. Differential Diagnosis: Partial list of the Differential diagnosis considered include but were not limited to; peptic ulcer disease, constipation, splenic pain and although unlikely based on the history and physical exam, I also considered obstruction, ischemia, aneurysm dissection, abscess, infarction. I discussed these differential diagnoses and the plan with the patient as well as the usual and expected course. The patient understands that the diagnosis is provisional and that in medicine we are not always correct and that further workup is often warranted. Usual and customary warnings were given. All of the patient's questions were answered. The patient was instructed to return to the emergency department should the symptoms at all worsen or return, otherwise to followup with the physician as we discussed. - Data Points Laboratory Results: Laboratory Results 09/11/17 14:00 09/11/17 14:00 09/11/17 09/11/17 09/11/17 14:40 14:00 14:00 WBC RBC Hgb Hct MCV MCH MCHC RDW Plt Count MPV Neut % (Auto) Lymph % (Auto) [place] % (Auto) Eos % (Auto) Baso % (Auto) Nucleat RBC Rel Count Absolute Neuts (auto) Absolute Lymphs (auto) Absolute Monos (auto) Absolute Eos (auto) Absolute Basos (auto) Absolute Nucleated RBC Immature Gran % Immature Gran # Sodium 145 mEq/L mEq/L (135-145) Potassium 4.2 mEq/L mEq/L (3.5-5.2) Chloride 111 mEq/L H mEq/L (97-110) Carbon Dioxide 22 mEq/l mEq/l (22-31) Anion Gap 12 mEq/L mEq/L (8-16) BUN 7 mg/dL mg/dL (7-23) Creatinine 0.5 mg/dL L mg/dL (0.6-1.0) Estimated GFR > 60 Glucose 84 mg/dL mg/dL (70-100) Calcium 8.5 mg/dL mg/dL (8.5-10.4) Total Bilirubin 1.9 mg/dL H mg/dL (0.1-1.4) Conjugated Bilirubin 1.2 mg/dL H mg/dL (0.0-0.5) Unconjugated Bilirubin 0.7 mg/dL mg/dL (0.0-1.1) AST 115 IU/L H IU/L (14-46) ALT 90 IU/L H IU/L (9-52) Alkaline Phosphatase 551 IU/L H IU/L (38-126) Total Protein 6.8 g/dL g/dL (6.3-8.2) Albumin 3.2 g/dL L g/dL (3.5-5.0) Lipase 95 IU/L IU/L (23-300) Beta HCG, Qual NEGATIVE Urine Color [place] Urine Appearance CLEAR Urine pH 7.0 (5.0-7.5) Ur Specific [place] 1.018 (1.002-1.030) Urine Protein NEGATIVE (NEGATIVE) Urine Ketones NEGATIVE (NEGATIVE) Urine Blood NEGATIVE (NEGATIVE) Urine Nitrate NEGATIVE (NEGATIVE) Urine Bilirubin NEGATIVE (NEGATIVE) Urine Urobilinogen 2.0 EU H EU (0.2-1.0) Ur Leukocyte Esterase NEGATIVE (NEGATIVE) Urine RBC 1-3 /hpf /hpf (0-3) Urine WBC 3-5 /hpf H /hpf (0-3) Ur Epithelial Cells TRACE /lpf /lpf (NONE-1+) Urine Mucus 2+ /lpf H /lpf (NONE-1+) Urine Glucose NEGATIVE (NEGATIVE) 09/11/17 14:00 WBC 3.96 10^3/uL 10^3/uL (3.80-9.50) RBC 3.32 10^6/uL L 10^6/uL (4.18-5.33) Hgb 11.3 g/dL L g/dL (12.6-16.3) Hct 33.9 % L % (38.0-47.0) MCV 102.1 fL H fL (81.5-99.8) MCH 34.0 pg pg (27.9-34.1) MCHC 33.3 g/dL g/dL (32.4-36.7) RDW 12.8 % % (11.5-15.2) Plt Count 86 10^3/uL L 10^3/uL (150-400) MPV 12.4 fL H fL (8.7-11.7) Neut % (Auto) 61.9 % % (39.3-74.2) Lymph % (Auto) 24.7 % % (15.0-45.0) [place] % (Auto) 9.3 % % (4.5-13.0) Eos % (Auto) 3.0 % % (0.6-7.6) Baso % (Auto) 0.8 % % (0.3-1.7) Nucleat RBC Rel Count 0.0 % % (0.0-0.2) Absolute Neuts (auto) 2.45 10^3/uL 10^3/uL (1.70-6.50) Absolute Lymphs (auto) 0.98 10^3/uL L 10^3/uL (1.00-3.00) Absolute Monos (auto) 0.37 10^3/uL 10^3/uL (0.30-0.80) Absolute Eos (auto) 0.12 10^3/uL 10^3/uL (0.03-0.40) Absolute Basos (auto) 0.03 10^3/uL 10^3/uL (0.02-0.10) Absolute Nucleated RBC 0.00 10^3/uL 10^3/uL (0-0.01) Immature Gran % 0.3 % % (0.0-1.1) Immature Gran # 0.01 10^3/uL 10^3/uL (0.00-0.10) Sodium Potassium Chloride Carbon Dioxide Anion Gap BUN Creatinine Estimated GFR Glucose Calcium Total Bilirubin Conjugated Bilirubin Unconjugated Bilirubin AST ALT Alkaline Phosphatase Total Protein Albumin Lipase Beta HCG, Qual Urine Color Urine Appearance Urine pH Ur Specific [place] Urine Protein Urine Ketones Urine Blood Urine Nitrate Urine Bilirubin Urine Urobilinogen Ur Leukocyte Esterase Urine RBC Urine WBC Ur Epithelial Cells Urine Mucus Urine Glucose Medications Given: Discontinued Medications Al Hydroxide/Mg Hydroxide (Maalox Susp) 30 ml PO ONCE ONE Stop: 09/11/17 13:44 Last Admin: 09/11/17 14:16 Dose: 30 ml Hydromorphone HCl (Dilaudid) 1 mg IVP EDNOW ONE Stop: 09/11/17 13:44 Last Admin: 09/11/17 14:18 Dose: 1 mg Hyoscyamine Sulfate (Levsin, Hyomax-Sl) 0.25 mg PO ONCE ONE Stop: 09/11/17 13:44 Last Admin: 09/11/17 14:18 Dose: 0.25 mg Sodium Chloride (Ns) 1,000 mls @ 0 mls/hr IV EDNOW ONE; Wide Open PRN Reason: Protocol Stop: 09/11/17 13:44 Last Admin: 09/11/17 13:50 Dose: 1,000 mls Lidocaine (Lidocaine 2% Viscous) 15 ml PO ONCE ONE Stop: 09/11/17 13:44 Last Admin: 09/11/17 14:16 Dose: 15 ml Ondansetron HCl (Zofran) 4 mg IVP EDNOW ONE Stop: 09/11/17 13:44 Last Admin: 09/11/17 14:16 Dose: 4 mg Departure - Departure Disposition: Home, Routine, Self-Care Clinical Impression: Abdominal pain Qualifiers: Abdominal location: left upper quadrant Qualified Code(s): R10.12 - Left upper quadrant pain Condition: Fair Instructions: Chronic Abdominal Pain (ED) Referrals: Jeremiah Sifuentes [Primary Care Provider] - As per Instructions Lamont Ann [Medical Doctor] - 2-3 days, call for appt. Agnes Fernandez MD [Medical Doctor] - As per Instructions Prescriptions: Lidocaine 2% Viscous 15 ml PO Q4-6PRN PRN #150 ml PRN Reason: Gi Distress Oxycodone HCl [Dazidox] 5 mg PO Q4-6PRN PRN #10 tablet PRN Reason: Pain, Mild
[2017-09-11 14:16] LABS: PLATELET COUNT 86 10^3/uL (150-400)
[2017-09-11] MEDS ORDERED: IOPAMIDOL (ISOVUE 370) 100 ML BTL IV ONE (14:49)
[2017-09-11 17:13] VITALS: BP 132/67; PULSE 77; RESP 20; TEMP 98.1; O2SAT 97
== END 2017-09-11 17:10 | disposition home or self-care (01) ==
DX: R10.12 Left upper quadrant pain (principal); F17.200 Nicotine dependence, unspecified, uncomplicated; E86.9 Volume depletion, unspecified
CPT/HCPCS: 96374; J1170; J2405; Q9967

== ENCOUNTER 2017-10-07 18:47 | Emergency (ER) | payer OTHER ==
[2017-10-07 18:54] VITALS: BP 132/84; PULSE 73; RESP 16; TEMP 98.1; O2SAT 98
--- NOTE | 2017-10-07 19:24 | EDPHY ---
H & P Stated Complaint: recent problems with taylor/denies SI Source: Patient Exam Limitations: No limitations - Personal History LMP (Females 10-55): Over 28 Days Ago Current Tetanus/Diphtheria Vaccine: Yes Tetanus Vaccine Date: < 10 years - Medical/Surgical History Hx Asthma: No Hx Chronic Respiratory Disease: No Hx Diabetes: No Hx Cardiac Disease: No Hx Renal Disease: No Hx Cirrhosis: No Hx Alcoholism: No Hx HIV/AIDS: No Hx Splenectomy or Spleen Trauma: No Other PMH: spleenic arterial embolism/kasai procedure/biliary atresia, portal hypertension, peptic ulcer disease - Social History Smoking Status: Former smoker Alcohol Use: Sober Time Seen by Provider: 10/07/17 19:14 HPI/ROS: CHIEF COMPLAINT: Taylor HISTORY OF PRESENT ILLNESS: The patient is a 22-year-old female with a history of bipolar and PTSD who states she is currently experiencing manic episode and her threshold for suicide is lowering however she does not currently feel suicidal or homicidal. She denies recent drug abuse. She is taking medications including lithium and Lamictal. She sees a therapist here in town but feels that she is not getting the help she needs. She does have a history of biliary atresia as well but is currently not having any medical complaints. She brought herself to the ER. REVIEW OF SYSTEMS: Constitutional: denies: chills, fever, recent illness, recent injury EENTM: denies: blurred vision, double vision, nose congestion Respiratory: denies: cough, shortness of breath Cardiac: denies: chest pain, irregular heart rate, lightheadedness, palpitations Gastrointestinal/Abdominal: denies: abdominal pain, diarrhea, nausea, vomiting, blood streaked stools Genitourinary: denies: dysuria, frequency, hematuria, pain Musculoskeletal: denies: joint pain, muscle pain Skin: denies: lesions, rash, jaundice, bruising Neurological: denies: headache, numbness, paresthesia, tingling, dizziness, weakness Hematologic/Lymphatic: denies: blood clots, easy bleeding, easy bruising Immunologic/allergic: denies: HIV/AIDS, transplant EXAM: GENERAL: Well-appearing, well-nourished and in no acute distress. HEAD: Atraumatic, normocephalic. EYES: Pupils equal round and reactive to light, extraocular movements intact, sclera anicteric, conjunctiva are normal. ENT: TMs normal, nares patent, oropharynx clear without exudates. Moist mucous membranes. NECK: Normal range of motion, supple without lymphadenopathy or JVD. LUNGS: Breath sounds clear to auscultation bilaterally and equal. No wheezes rales or rhonchi. HEART: Regular rate and rhythm without murmurs, rubs or gallops. ABDOMEN: Soft, nontender, normoactive bowel sounds. No guarding, no rebound. No masses appreciated. BACK: No CVA tenderness, no spinal tenderness, step-offs or deformities EXTREMITIES: Normal range of motion, no pitting or edema. No clubbing or cyanosis. NEUROLOGICAL: Cranial nerves II through XII grossly intact. Normal speech, normal gait. 5/5 strength, normal movement in all extremities, normal sensation PSYCH: Talkative, endorses depression but not suicidality or homicidality, dramatic SKIN: Warm, dry, normal turgor, no visible rashes or lesions. (Campos Aggarwal) Constitutional: Initial Vital Signs Temperature (C) 36.7 C 10/07/17 18:51 Heart Rate 73 10/07/17 18:51 Respiratory Rate 16 10/07/17 18:51 Blood Pressure 132/84 H 10/07/17 18:51 O2 Sat (%) 98 10/07/17 18:51 O2 Delivery Mode Room Air Allergies/Adverse Reactions: acetaminophen Allergy (Verified 10/07/17 18:50) Home Medications: Medication Instructions Recorded [place] Carbonate ER [Lithobid 300 300 mg PO HS 06/29/17 mg (*)] QUEtiapine FUMARATE [Seroquel 50 50 mg PO HS 06/29/17 mg (*)] QUEtiapine FUMARATE [Seroquel 50 50 mg PO HS PRN 06/29/17 mg (*)] lamoTRIgine [LamICTAL 100 MG (*)] 100 mg PO HS 06/29/17 Medical Decision Making ED Course/Re-evaluation: 12:02 a.m.- The patient was evaluated by mental health. She is suitable for discharge. The case was discussed with the psychiatrist Dr. Abdul. She will be discharged from the emergency department. (Shaila Snyder) 9:00 p.m. the patient medically cleared. We are awaiting psychiatric evaluation. She is not on an M1 hold. 11:26 p.m. The patient has been evaluated. There speaking with her counselors and giving referrals. She will likely be discharged. She is not on a hold. Care transferred to Dr. Snyder at shift change. (Campos Aggarwal) Differential Diagnosis: Partial list of the Differential diagnosis considered include but were not limited to; depression, anxiety, suicidality and although unlikely based on the history and physical exam, I also considered overdose, infection. (Campos Aggarwal) - Data Points Laboratory Results: Laboratory Results 10/07/17 19:32 10/07/17 19:32 Medications Given: Discontinued Medications Cyclobenzaprine HCl (Flexeril) 5 mg PO EDNOW ONE Stop: 10/07/17 23:19 Last Admin: 10/07/17 23:18 Dose: 5 mg Lorazepam (Ativan) 1 mg PO EDNOW ONE Stop: 10/07/17 20:28 Last Admin: 10/07/17 20:29 Dose: 1 mg Departure - Departure Disposition: Home, Routine, Self-Care Clinical Impression: Bipolar 1 disorder Condition: Good Instructions: Depression (ED), Anxiety (ED) Additional Instructions: FOLLOW UP WITH A MENTAL HEALTH PROVIDER. Referrals: Jeremiah Sifuentes [Primary Care Provider] - As per Instructions
[2017-10-07 19:46] LABS: PLATELET COUNT 98 10^3/uL (150-400)
[2017-10-07] MEDS ORDERED: LORazepam 1 MG TAB ONE (20:22)
[2017-10-07] MEDS ORDERED: LORazepam 1 MG TAB PO ONE (20:27)
[2017-10-07] MEDS ORDERED: CYCLOBENZAPRINE 10 MG TAB PO ONE (23:18)
== END 2017-10-08 00:02 | disposition home or self-care (01) ==
DX: F31.9 Bipolar disorder, unspecified (principal); Z87.891 Personal history of nicotine dependence
CPT/HCPCS: 80305; G0480

== ENCOUNTER 2017-11-18 22:38 | Emergency (ER) | payer OTHER ==
[2017-11-18] MEDS ORDERED: HYDROmorphONE/DILAUDID 2 MG/ML INJ IVP ONE (23:23)
[2017-11-18] MEDS ORDERED: NS 1,000 ML IV ONE (23:23)
[2017-11-18 23:30] LABS: PLATELET COUNT 101 10^3/uL (150-400)
[2017-11-19] MEDS ORDERED: ONDANSETRON 4 MG/2 ML VIAL IVP ONE (00:13)
[2017-11-19] MEDS ORDERED: IOPAMIDOL (ISOVUE-300) 100 ML BTL ONE (00:29)
--- NOTE | 2017-11-19 01:13 | EDPHY ---
H & P Stated Complaint: LUQ abd pain x 2 days Time Seen by Provider: 11/18/17 23:00 HPI/ROS: Chief complaint: Abdominal pain History of present illness: This is a 22-year-old female who presents to the emergency department for abdominal pain. Patient has a complicated abdominal medical history. She has noticed increasing abdominal pain over the last 2 days. Pain is primarily in the left upper aspect of the abdomen. She has had nausea and vomiting. She denies precipitating factors. She denies alleviating factors. She denies other associated signs or symptoms including no fevers, no diarrhea or constipation, no urinary symptoms. She reports she is normally in a constant state of pain and feels like this is most likely just a flare of the pain but wants to make sure there is no further problems going on at this time. Review of systems: A 10 point review of systems was obtained and other than described above was negative - Personal History LMP (Females 10-55): Irregular Current Tetanus/Diphtheria Vaccine: Yes Current Tetanus Diphtheria and Acellular Pertussis (TDAP): Yes Tetanus Vaccine Date: < 10 years - Medical/Surgical History Hx Asthma: No Hx Chronic Respiratory Disease: No Hx Diabetes: No Hx Cardiac Disease: No Hx Renal Disease: No Hx Cirrhosis: No Hx Alcoholism: No Hx HIV/AIDS: No Hx Splenectomy or Spleen Trauma: No Other PMH: spleenic arterial embolism/kasai procedure/biliary atresia, portal hypertension, peptic ulcer disease - Social History Smoking Status: Former smoker - Physical Exam Exam: General Appearance: Alert, nontoxic. Eyes: Pupils equal and round no pallor or injection. ENT, Mouth: Mucous membranes moist. Respiratory: There are no retractions, lungs are clear to auscultation. Cardiovascular: Regular rate and rhythm. Gastrointestinal: Abdomen is soft and non tender, no masses, bowel sounds normal. Neurological: Alert and oriented x4. Strength and sensation intact and symmetrical. Skin: Warm and dry, no rashes. Musculoskeletal: Neck is supple non tender. Extremities are symmetrical, full range of motion. Psychiatric: Patient is oriented X 3, there is no agitation. Constitutional: Initial Vital Signs Temperature (C) 36.9 C 11/18/17 22:43 Heart Rate 91 11/18/17 22:43 Respiratory Rate 18 11/18/17 22:43 Blood Pressure 134/90 H 11/18/17 22:43 O2 Sat (%) 95 04/05/18 22:43 O2 Delivery Mode Room Air Allergies/Adverse Reactions: acetaminophen Allergy (Verified 10/07/17 18:50) Home Medications: Medication Instructions Recorded Axson Carbonate ER [Lithobid 300 300 mg PO HS 06/29/17 mg (*)] QUEtiapine FUMARATE [Seroquel 50 50 mg PO HS 06/29/17 mg (*)] QUEtiapine FUMARATE [Seroquel 50 50 mg PO HS PRN 06/29/17 mg (*)] lamoTRIgine [LamICTAL 100 MG (*)] 100 mg PO HS 06/29/17 Oxycodone HCl 5 mg PO Q6 #10 capsule 11/19/17 Medical Decision Making - Diagnostics Imaging: Discussed imaging studies w/ order desk caller Radiologist ED Course/Re-evaluation: Patient is discussed with my secondary supervising physician Dr. Cheko Martin. Patient presents for abdominal pain. She is nontoxic. Vital signs are stable. Serial abdominal exams are performed and remain benign. Blood studies , urine and imaging studies largely unremarkable, changes in her LFTs appear to be consistent with prior studies. CT scan is unchanged from previous. Symptoms are well controlled. She is comfortable being discharged home. She will be discharged with a short course of pain medication. She is to follow up with her primary care doctor for recheck. Return precautions are given. Differential Diagnosis: Included but not limited to gastritis, peptic ulcer disease, splenic pathology, hepatitis, biliary tract complications, pancreatitis, an associated complications, urinary tract disease - Data Points Laboratory Results: Laboratory Results 11/18/17 22:55 11/18/17 22:55 11/18/17 11/18/17 11/18/17 23:32 22:55 22:55 WBC RBC Hgb Hct MCV MCH MCHC RDW Plt Count MPV Neut % (Auto) Lymph % (Auto) [place] % (Auto) Eos % (Auto) Baso % (Auto) Nucleat RBC Rel Count Absolute Neuts (auto) Absolute Lymphs (auto) Absolute Monos (auto) Absolute Eos (auto) Absolute Basos (auto) Absolute Nucleated RBC Immature Gran % Immature Gran # Sodium 145 mEq/L mEq/L (135-145) Potassium 3.9 mEq/L mEq/L (3.5-5.2) Chloride 109 mEq/L mEq/L (97-110) Carbon Dioxide 25 mEq/l mEq/l (22-31) Anion Gap 11 mEq/L mEq/L (8-16) BUN 8 mg/dL mg/dL (7-23) Creatinine 0.5 mg/dL L mg/dL (0.6-1.0) Estimated GFR > 60 Glucose 81 mg/dL mg/dL (70-100) Calcium 8.4 mg/dL L mg/dL (8.5-10.4) Total Bilirubin 2.1 mg/dL H mg/dL (0.1-1.4) Conjugated Bilirubin 1.4 mg/dL H mg/dL (0.0-0.5) Unconjugated Bilirubin 0.7 mg/dL mg/dL (0.0-1.1) AST 177 IU/L H IU/L (14-46) ALT 108 IU/L H IU/L (9-52) Alkaline Phosphatase 716 IU/L H IU/L (38-126) Total Protein 7.6 g/dL g/dL (6.3-8.2) Albumin 3.6 g/dL g/dL (3.5-5.0) Lipase 188 IU/L IU/L (23-300) Beta HCG, Qual NEGATIVE Urine Color KIRILL Urine Appearance MODERATELY TURBID Urine pH 7.0 (5.0-7.5) Ur Specific [place] 1.018 (1.002-1.030) Urine Protein NEGATIVE (NEGATIVE) Urine Ketones NEGATIVE (NEGATIVE) Urine Blood NEGATIVE (NEGATIVE) Urine Nitrate NEGATIVE (NEGATIVE) Urine Bilirubin NEGATIVE (NEGATIVE) Urine Urobilinogen 4.0 EU H EU (0.2-1.0) Ur Leukocyte Esterase NEGATIVE (NEGATIVE) Urine RBC 1-3 /hpf /hpf (0-3) Urine WBC 1-3 /hpf /hpf (0-3) Ur Epithelial Cells TRACE /lpf /lpf (NONE-1+) Calcium Oxalate Crystal PRESENT /hpf /hpf (NONE-1+) Hyaline Casts 1-5 /lpf /lpf (0-1) Urine Mucus 2+ /lpf H /lpf (NONE-1+) Urine Glucose NEGATIVE (NEGATIVE) 11/18/17 22:55 WBC 5.37 10^3/uL 10^3/uL (3.80-9.50) RBC 3.59 10^6/uL L 10^6/uL (4.18-5.33) Hgb 12.1 g/dL L g/dL (12.6-16.3) Hct 35.5 % L % (38.0-47.0) MCV 98.9 fL fL (81.5-99.8) MCH 33.7 pg pg (27.9-34.1) MCHC 34.1 g/dL g/dL (32.4-36.7) RDW 13.4 % % (11.5-15.2) Plt Count 101 10^3/uL L 10^3/uL (150-400) MPV 12.8 fL H fL (8.7-11.7) Neut % (Auto) 49.3 % % (39.3-74.2) Lymph % (Auto) 37.2 % % (15.0-45.0) [place] % (Auto) 9.7 % % (4.5-13.0) Eos % (Auto) 3.0 % % (0.6-7.6) Baso % (Auto) 0.6 % % (0.3-1.7) Nucleat RBC Rel Count 0.0 % % (0.0-0.2) Absolute Neuts (auto) 2.65 10^3/uL 10^3/uL (1.70-6.50) Absolute Lymphs (auto) 2.00 10^3/uL 10^3/uL (1.00-3.00) Absolute Monos (auto) 0.52 10^3/uL 10^3/uL (0.30-0.80) Absolute Eos (auto) 0.16 10^3/uL 10^3/uL (0.03-0.40) Absolute Basos (auto) 0.03 10^3/uL 10^3/uL (0.02-0.10) Absolute Nucleated RBC 0.00 10^3/uL 10^3/uL (0-0.01) Immature Gran % 0.2 % % (0.0-1.1) Immature Gran # 0.01 10^3/uL 10^3/uL (0.00-0.10) Sodium Potassium Chloride Carbon Dioxide Anion Gap BUN Creatinine Estimated GFR Glucose Calcium Total Bilirubin Conjugated Bilirubin Unconjugated Bilirubin AST ALT Alkaline Phosphatase Total Protein Albumin Lipase Beta HCG, Qual Urine Color Urine Appearance Urine pH Ur Specific [place] Urine Protein Urine Ketones Urine Blood Urine Nitrate Urine Bilirubin Urine Urobilinogen Ur Leukocyte Esterase Urine RBC Urine WBC Ur Epithelial Cells Calcium Oxalate Crystal Hyaline Casts Urine Mucus Urine Glucose Medications Given: Discontinued Medications Hydromorphone HCl (Dilaudid) 1 mg IVP EDNOW ONE Stop: 11/18/17 23:24 Last Admin: 11/18/17 23:30 Dose: 1 mg Sodium Chloride (Ns) 1,000 mls @ 0 mls/hr IV EDNOW ONE; Wide Open PRN Reason: Protocol Stop: 11/18/17 23:24 Last Admin: 11/18/17 23:30 Dose: 1,000 mls Ondansetron HCl (Zofran) 4 mg IVP EDNOW ONE Stop: 11/19/17 00:14 Last Admin: 11/19/17 00:21 Dose: 4 mg Departure - Departure Disposition: Home, Routine, Self-Care Clinical Impression: Abdominal pain Qualifiers: Abdominal location: generalized Qualified Code(s): R10.84 - Generalized abdominal pain Condition: Good Instructions: Abdominal Pain (ED) Additional Instructions: Follow-up with your primary care doctor in the next 1-2 days for recheck If symptoms worsen or new symptoms develop return to the emergency room for recheck Referrals: Jeremiah Sifuentes [Primary Care Provider] - As per Instructions Prescriptions: Oxycodone HCl 5 mg PO Q6 #10 capsule
[2017-11-19 01:22] VITALS: BP 140/83
== END 2017-11-19 01:42 | disposition home or self-care (01) ==
DX: R10.84 Generalized abdominal pain (principal); E86.9 Volume depletion, unspecified; Z87.891 Personal history of nicotine dependence
CPT/HCPCS: 96374; J1170; J2405; Q9967

== ENCOUNTER 2017-12-06 18:44 | Emergency (ER) | payer OTHER ==
[2017-12-06] MEDS ORDERED: NS 1,000 ML IV ONE (19:42)
[2017-12-06 19:53] LABS: PLATELET COUNT 88 10^3/uL (150-400)
--- NOTE | 2017-12-06 20:06 | EDPHY ---
H & P Time Seen by Provider: 12/06/17 20:03 HPI/ROS: Chief complaint. Abdominal pain HPI. 22-year-old female with left upper quadrant abdominal pain for 1 day. No radiation. She says she feels like she has been punched. Nausea but no vomiting or diarrhea. It is worse with walking. No fever. She has had some molar symptoms this multiple times previously. It has previously been relieved with GI cocktail. Her stable hand today recommended Prilosec and Mylanta. She took ranitidine. She was seen November 18 in our emergency department for same presentation and workup was normal including a CT scan. No chest discomfort or trouble breathing. ROS Constitutional. no fever/chills, no weakness Eyes. no problems with vision ENT. no sore throat, no nasal drainage Cardiovascular. no chest pain Respiratory. no shortness of breath, no cough Abdominal. Left upper quadrant abdominal pain with nausea . no problems urinating MS. no calf pain/swelling, no neck/back pain, no joint pain Skin. no rash Lymph. no swollen glands Neuro. 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 She has had a splenic arterial embolism, portal hypertension, peptic ulcer disease Social History: Single, nonsmoker, no alcohol Smoking Status: Former smoker Physical Exam: General Appearance: Alert well-developed female mild distress vital signs are stable Eyes: Pupils equal and round no pallor or injection. ENT, Mouth: Mucous membranes are moist. Respiratory: There are no retractions, lungs are clear to auscultation. Cardiovascular: Regular rate and rhythm. Gastrointestinal: Abdomen is soft with tenderness in the epigastrium left upper quadrant. No masses. No organomegaly Neurological: Awake and alert, sensory and motor exams grossly normal. Skin: Warm and dry, no rashes. Musculoskeletal: Neck is supple nontender. Extremities symmetrical, full range of motion. Psychiatric: Patient is oriented X 3, there is no agitation. Constitutional: Initial Vital Signs Temperature (C) 37 C 12/06/17 18:51 Heart Rate 83 12/06/17 18:51 Respiratory Rate 16 12/06/17 18:51 Blood Pressure 132/79 H 12/06/17 18:51 O2 Sat (%) 97 12/06/17 18:51 O2 Delivery Mode Room Air Allergies/Adverse Reactions: acetaminophen Allergy (Verified 10/07/17 18:50) Home Medications: Medication Instructions Recorded Ranitidine HCl 12/06/17 Medical Decision Making Procedures: IV normal saline. GI ED Course/Re-evaluation: Re-evaluation 8:45 p.m.. Patient is much improved after the GI cocktail. Still has some discomfort. Would like to try IV Toradol Re-evaluation at 9:45 p.m.. Toradol really has not helped her to much. Patient and I talked about repeat CT scan. She is comfortable with not doing it. She had a normal CT scan 1 month ago for same symptoms. Patient would like some IV pain medication and then will go home and follow up with her physician tomorrow. She and I discussed laboratory evaluation, treatment plan including criteria for return importance of follow-up further evaluation. She expresses understanding and agreement Differential Diagnosis: This appears to be gastritis, peptic ulcer disease. I do not think she has an acute abdomen. No evidence for appendicitis. - Data Points Laboratory Results: Laboratory Results 12/06/17 19:43 12/06/17 19:43 12/06/17 12/06/17 12/06/17 19:43 19:43 19:43 WBC 4.86 10^3/uL 10^3/uL (3.80-9.50) RBC 3.46 10^6/uL L 10^6/uL (4.18-5.33) Hgb 11.8 g/dL L g/dL (12.6-16.3) Hct 34.1 % L % (38.0-47.0) MCV 98.6 fL fL (81.5-99.8) MCH 34.1 pg pg (27.9-34.1) MCHC 34.6 g/dL g/dL (32.4-36.7) RDW 13.4 % % (11.5-15.2) Plt Count 88 10^3/uL L 10^3/uL (150-400) MPV 12.4 fL H fL (8.7-11.7) Neut % (Auto) 51.0 % % (39.3-74.2) Lymph % (Auto) 34.8 % % (15.0-45.0) [place] % (Auto) 11.5 % % (4.5-13.0) Eos % (Auto) 2.1 % % (0.6-7.6) Baso % (Auto) 0.4 % % (0.3-1.7) Nucleat RBC Rel Count 0.0 % % (0.0-0.2) Absolute Neuts (auto) 2.48 10^3/uL 10^3/uL (1.70-6.50) Absolute Lymphs (auto) 1.69 10^3/uL 10^3/uL (1.00-3.00) Absolute Monos (auto) 0.56 10^3/uL 10^3/uL (0.30-0.80) Absolute Eos (auto) 0.10 10^3/uL 10^3/uL (0.03-0.40) Absolute Basos (auto) 0.02 10^3/uL 10^3/uL (0.02-0.10) Absolute Nucleated RBC 0.00 10^3/uL 10^3/uL (0-0.01) Immature Gran % 0.2 % % (0.0-1.1) Immature Gran # 0.01 10^3/uL 10^3/uL (0.00-0.10) Sodium 138 mEq/L mEq/L (135-145) Potassium 3.8 mEq/L mEq/L (3.5-5.2) Chloride 106 mEq/L mEq/L (97-110) Carbon Dioxide 22 mEq/l mEq/l (22-31) Anion Gap 10 mEq/L mEq/L (8-16) BUN 9 mg/dL mg/dL (7-23) Creatinine 0.4 mg/dL L mg/dL (0.6-1.0) Estimated GFR > 60 Glucose 83 mg/dL mg/dL (70-100) Calcium 8.6 mg/dL mg/dL (8.5-10.4) Total Bilirubin 1.7 mg/dL H mg/dL (0.1-1.4) Conjugated Bilirubin 1.2 mg/dL H mg/dL (0.0-0.5) Unconjugated Bilirubin 0.5 mg/dL mg/dL (0.0-1.1) AST 150 IU/L H IU/L (14-46) ALT 89 IU/L H IU/L (9-52) Alkaline Phosphatase 605 IU/L H IU/L (38-126) Total Protein 7.0 g/dL g/dL (6.3-8.2) Albumin 3.2 g/dL L g/dL (3.5-5.0) Lipase 182 IU/L IU/L (23-300) Beta HCG, Quant < 2.39 mIU/mL mIU/mL (0.00-4.83) Medications Given: Discontinued Medications Al Hydroxide/Mg Hydroxide (Maalox Susp) 30 ml PO ONCE ONE Stop: 12/06/17 20:17 Last Admin: 12/06/17 20:30 Dose: 30 ml Sodium Chloride (Ns) 1,000 mls @ 3,000 mls/hr IV ONCE ONE Stop: 12/06/17 20:01 Last Admin: 12/06/17 19:42 Dose: 1,000 mls Ketorolac Tromethamine (Toradol) 30 mg IVP EDNOW ONE Stop: 12/06/17 20:51 Last Admin: 12/06/17 21:00 Dose: 30 mg Lidocaine (Lidocaine 2% Viscous) 15 ml PO ONCE ONE Stop: 12/06/17 20:17 Last Admin: 12/06/17 20:30 Dose: 15 ml Departure - Departure Disposition: Home, Routine, Self-Care Clinical Impression: Abdominal pain Qualifiers: Abdominal location: epigastric Qualified Code(s): R10.13 - Epigastric pain Condition: Good Instructions: Acute Abdominal Pain (ED) Additional Instructions: Continue your ranitidine. May use Maalox or Mylanta 2 tbsp every 6 hr in addition. Return for worsening symptoms. Call your GI physician tomorrow. Referrals: Jeremiah Sifuentes [Primary Care Provider] - 1 day without fail
[2017-12-06] MEDS ORDERED: MAG HYDROX/AL HYDROX/SIMETH 30 ML UDCUP PO ONE (20:16)
[2017-12-06] MEDS ORDERED: LIDOCAINE 2% VISCOUS 15 ML UDCUP PO ONE (20:16)
[2017-12-06] MEDS ORDERED: KETOROLAC 30 MG/1 ML SDV IVP ONE (20:50)
[2017-12-06] MEDS ORDERED: ONDANSETRON 4 MG/2 ML VIAL IVP ONE (21:59)
[2017-12-06 22:42] VITALS: BP 115/72
== END 2017-12-06 22:46 | disposition home or self-care (01) ==
DX: R10.13 Epigastric pain (principal); Z87.891 Personal history of nicotine dependence
CPT/HCPCS: 96374; J1885; J2270; J2405

== ENCOUNTER 2018-01-12 19:32 | Emergency (ER) | payer OTHER ==
[2018-01-12] MEDS ORDERED: ONDANSETRON 4 MG/2 ML VIAL IVP ONE (19:50)
[2018-01-12] MEDS ORDERED: NS 1,000 ML IV ONE ×2 (19:50→22:13)
--- NOTE | 2018-01-12 20:03 | EDPHY ---
H & P Stated Complaint: abd pain, yellowness in eyes, and fatigue - Personal History LMP (Females 10-55): 1-7 Days Ago Current Tetanus/Diphtheria Vaccine: Yes Current Tetanus Diphtheria and Acellular Pertussis (TDAP): Yes Tetanus Vaccine Date: < 10 years - Medical/Surgical History Hx Asthma: No Hx Chronic Respiratory Disease: No Hx Diabetes: No Hx Cardiac Disease: No Hx Renal Disease: No Hx Cirrhosis: Yes Hx Alcoholism: Yes Hx HIV/AIDS: No Hx Splenectomy or Spleen Trauma: No Other PMH: spleenic arterial embolism/kasai procedure/biliary atresia, portal hypertension, peptic ulcer disease - Social History Smoking Status: Former smoker <Donald Sharma - Last Filed: 01/12/18 20:37> <Sofia Hill - Last Filed: 01/12/18 22:32> Time Seen by Provider: 01/12/18 19:42 Constitutional: Initial Vital Signs Temperature (C) 36.6 C 01/12/18 19:34 Heart Rate 85 01/12/18 19:34 Respiratory Rate 16 01/12/18 19:34 Blood Pressure 137/90 H 01/12/18 19:34 O2 Sat (%) 98 01/12/18 19:34 O2 Delivery Mode Room Air Allergies/Adverse Reactions: acetaminophen Allergy (Verified 01/12/18 19:38) Home Medications: Medication Instructions Recorded Amoxicillin 01/12/18 Clarithromycin 01/12/18 Dicyclomine 01/12/18 Gabapentin 01/12/18 Sucralfate [Carafate 1 GM (*)] 1 gm PO ACHS #40 tab 01/12/18 traZODone 01/12/18 Medical Decision Making <Donald Sharma - Last Filed: 01/12/18 20:37> - Diagnostics Imaging: Discussed imaging studies w/ call out operator Radiologist <Sofia Hill - Last Filed: 01/12/18 22:32> - Diagnostics Imaging Results: Imaging Impressions Abdomen Ultrasound 01/12/18 19:50 Impression: Limited study secondary to overlying bowel gas. Atrophic left lobe of the liver and heterogeneous right lobe of the liver, as seen from prior CT. The gallbladder is not visualized and the common bile duct is not visualized, but no evidence for intrahepatic biliary ductal dilatation. Evidence of the splenic artery aneurysm, with prior embolization. Results called and discussed with Dr. Sofia Hill on January 12, 2018 at 2129. ED Course/Re-evaluation: CHIEF COMPLAINT: Abdominal pain. HISTORY OF PRESENT ILLNESS: This patient is a 22 year old female with history of biliary atresia. She has had several ED visits recency for H. pylori and has taken several antibiotics including amoxicillin and clarithromycin for past 11 days. She has also been taking fluconazole for yeast infection secondary to antibiotic use as well. She is worried that these may be affecting her liver function. This morning, she noticed her eyes are more jaundiced and she feels fatigued, nauseous, and dizzy. She has had tea-colored urine despite drinking multiple liters of water per day. Her abdominal pain is persistent. She denies vomiting or diarrhea. No fever, chest pain, shortness of breath, dysuria, or other associated symptoms. REVIEW OF SYSTEMS: A 10 point review of systems was performed and is negative with the exception of the elements mentioned in the history of present illness. PHYSICAL EXAM: HR, BP, O2 Sat, RR. Temp noted General Appearance: Alert, well hydrated, appropriate, and non-toxic appearing. Head: Atraumatic without scalp tenderness or obvious injury Eyes: Pupils equal, round, reactive to light and accommodation, EOMI, no trauma , no injection. Ears: Clear bilaterally, no perforation, normal landmarks Nose: Atraumatic, no rhinorrhea, clear. Throat: There is no erythema or exudates, no lesions, normal tonsils, mucus membranes moist. Neck: Supple, nontender, no lymphadenopathy. Respiratory: No retractions, no distress, no wheezes, and no accessory muscle use. Lungs are clear to auscultation bilaterally. Cardiovascular: Regular rate and rhythm, no murmurs, rubs, or gallops. Good capillary refill all extremities. Gastrointestinal: Right upper quadrant tenderness. Abdomen is soft, non- distended, no masses, no rebound, no guarding, no peritoneal signs. Musculoskeletal: Normal active ROM of all extremities, atraumatic. Neurological: Alert, appropriate, and interactive. Nonfocal neuro exam. Skin: No rashes, good turgor, no nodules on palpation. Past medical history: Biliary atresia. No stents. Past surgical history: Kasai procedure as an . Family history: Noncontributory. Social history: Fiance at bedside. Lives in [place]. [employer] Dr. Siddiqui DIFFERENTIAL DIAGNOSIS: The differential diagnosis for the patient's abdominal pain included but was not limited to ovarian cyst, pelvic inflammatory disease, ovarian torsion, urinary tract infection, ectopic , cholecystitis, and appendicitis. MEDICAL DECISION MAKIN22 y/o female with biliary atresia presents with abdominal pain and possible jaundice. She has right upper quadrant tenderness on exam. She does not appear very jaundiced to me, but she and her fiance at bedside agree her eyes in particular appear more yellow than usual. The patient declines Dilaudid, and would prefer morphine. She took a GI cocktail at home (30mg Maalox/lidocaine) prior to arrival. Plan for US abdomen, labs including CBC, chemistries, liver, lipase, BHCG, UA. Plan to administer 4mg IV Zofran, 6mg IV morphine, and 1L IV NS for symptom relief. Patient's symptoms may be secondary to Fluconazole, which has been known to cause clinically apparent hepatotoxicity. 20:15 Care of this patient transferred to Dr. Hill at shift change. ( Donald Sharma) Other Provider: 2014: I assumed care of this patient at shift change. 2128: Spoke with radiologist regarding patient's ultrasound findings. 2199: Reassessed patient and discussed normal laboratory and imaging findings. I have advised her to follow up with her language interpreter. I have advised her to take Ranitidine, Maalox, and Carafate for her symptoms. Return precautions provided; patient is comfortable with this plan. (Sofia Hill) - Data Points Laboratory Results: Laboratory Results 01/12/18 20:00 01/12/18 20:00 01/12/18 01/12/18 01/12/18 21:10 20:00 20:00 WBC RBC Hgb Hct MCV MCH MCHC RDW Plt Count MPV Neut % (Auto) Lymph % (Auto) [place] % (Auto) Eos % (Auto) Baso % (Auto) Nucleat RBC Rel Count Absolute Neuts (auto) Absolute Lymphs (auto) Absolute Monos (auto) Absolute Eos (auto) Absolute Basos (auto) Absolute Nucleated RBC Immature Gran % Immature Gran # Sodium 141 mEq/L mEq/L (135-145) Potassium 3.5 mEq/L mEq/L (3.3-5.0) Chloride 108 mEq/L mEq/L (97-110) Carbon Dioxide 22 mEq/l mEq/l (22-31) Anion Gap 11 mEq/L mEq/L (8-16) BUN 7 mg/dL mg/dL (7-23) Creatinine 0.5 mg/dL L mg/dL (0.6-1.0) Estimated GFR > 60 Glucose 83 mg/dL mg/dL (70-100) Calcium 8.1 mg/dL L mg/dL (8.5-10.4) Total Bilirubin 2.1 mg/dL H mg/dL (0.1-1.4) Conjugated Bilirubin 1.3 mg/dL H mg/dL (0.0-0.5) Unconjugated Bilirubin 0.8 mg/dL mg/dL (0.0-1.1) AST 138 IU/L H IU/L (14-46) ALT 96 IU/L H IU/L (9-52) Alkaline Phosphatase 543 IU/L H IU/L (38-126) Total Protein 6.5 g/dL g/dL (6.3-8.2) Albumin 3.0 g/dL L g/dL (3.5-5.0) Lipase 204 IU/L IU/L (23-300) Beta HCG, Qual NEGATIVE Urine Color YELLOW Urine Appearance CLEAR Urine pH 6.0 (5.0-7.5) Ur Specific [place] 1.014 (1.002-1.030) Urine Protein NEGATIVE (NEGATIVE) Urine Ketones NEGATIVE (NEGATIVE) Urine Blood NEGATIVE (NEGATIVE) Urine Nitrate NEGATIVE (NEGATIVE) Urine Bilirubin NEGATIVE (NEGATIVE) Urine Urobilinogen NEGATIVE EU EU (0.2-1.0) Ur Leukocyte Esterase NEGATIVE (NEGATIVE) Urine RBC 1-3 /hpf /hpf (0-3) Urine WBC 0-1 /hpf /hpf (0-3) Ur Epithelial Cells TRACE /lpf /lpf (NONE-1+) Urine Mucus TRACE /lpf /lpf (NONE-1+) Urine Glucose NEGATIVE (NEGATIVE) 01/12/18 20:00 WBC 4.72 10^3/uL 10^3/uL (3.80-9.50) RBC 3.39 10^6/uL L 10^6/uL (4.18-5.33) Hgb 11.6 g/dL L g/dL (12.6-16.3) Hct 33.1 % L % (38.0-47.0) MCV 97.6 fL fL (81.5-99.8) MCH 34.2 pg H pg (27.9-34.1) MCHC 35.0 g/dL g/dL (32.4-36.7) RDW 13.2 % % (11.5-15.2) Plt Count 88 10^3/uL L 10^3/uL (150-400) MPV 12.6 fL H fL (8.7-11.7) Neut % (Auto) 54.1 % % (39.3-74.2) Lymph % (Auto) 30.9 % % (15.0-45.0) [place] % (Auto) 11.2 % % (4.5-13.0) Eos % (Auto) 3.2 % % (0.6-7.6) Baso % (Auto) 0.4 % % (0.3-1.7) Nucleat RBC Rel Count 0.0 % % (0.0-0.2) Absolute Neuts (auto) 2.55 10^3/uL 10^3/uL (1.70-6.50) Absolute Lymphs (auto) 1.46 10^3/uL 10^3/uL (1.00-3.00) Absolute Monos (auto) 0.53 10^3/uL 10^3/uL (0.30-0.80) Absolute Eos (auto) 0.15 10^3/uL 10^3/uL (0.03-0.40) Absolute Basos (auto) 0.02 10^3/uL 10^3/uL (0.02-0.10) Absolute Nucleated RBC 0.00 10^3/uL 10^3/uL (0-0.01) Immature Gran % 0.2 % % (0.0-1.1) Immature Gran # 0.01 10^3/uL 10^3/uL (0.00-0.10) Sodium Potassium Chloride Carbon Dioxide Anion Gap BUN Creatinine Estimated GFR Glucose Calcium Total Bilirubin Conjugated Bilirubin Unconjugated Bilirubin AST ALT Alkaline Phosphatase Total Protein Albumin Lipase Beta HCG, Qual Urine Color Urine Appearance Urine pH Ur Specific [place] Urine Protein Urine Ketones Urine Blood Urine Nitrate Urine Bilirubin Urine Urobilinogen Ur Leukocyte Esterase Urine RBC Urine WBC Ur Epithelial Cells Urine Mucus Urine Glucose Medications Given: Discontinued Medications Sodium Chloride (Ns) 1,000 mls @ 0 mls/hr IV EDNOW ONE; Wide Open PRN Reason: Protocol Stop: 01/12/18 19:51 Last Admin: 01/12/18 20:13 Dose: 1,000 mls Sodium Chloride (Ns) 1,000 mls @ 0 mls/hr IV ONCE ONE; Wide Open PRN Reason: Protocol Stop: 01/12/18 22:14 Last Admin: 01/12/18 22:21 Dose: 1,000 mls Morphine Sulfate (Morphine) 6 mg IVP EDNOW ONE Stop: 01/12/18 19:51 Last Admin: 01/12/18 20:14 Dose: 6 mg Ondansetron HCl (Zofran) 4 mg IVP EDNOW ONE Stop: 01/12/18 19:51 Last Admin: 01/12/18 20:13 Dose: 4 mg Departure <Donald Sharma - Last Filed: 01/12/18 20:37> <Sofia Hill - Last Filed: 01/12/18 22:32> - Departure Disposition: Home, Routine, Self-Care Clinical Impression: Biliary atresia Abdominal pain Qualifiers: Abdominal location: epigastric Qualified Code(s): R10.13 - Epigastric pain Gastritis Qualifiers: Gastritis type: unspecified gastritis Chronicity: acute Gastritis bleeding: without bleeding Qualified Code(s): K29.00 - Acute gastritis without bleeding Condition: Good Instructions: Acute Abdominal Pain (ED) Additional Instructions: Follow up with your language interpreter as soon as possible. Please begin taking ranitidine or other H2 nighat in the evening. Continue to use Maalox, or Mylanta or GI cocktail as needed for discomfort. You have also been given a prescription for Carafate. Please use this as directed prior to meals. Return to the emergency department if you have worsening pain, fevers, persistent vomiting, or other concerns. Referrals: Jeremiah Sifuentes [Primary Care Provider] - As per Instructions Krishna Siddiqui [Medical Doctor] - As per Instructions Prescriptions: Sucralfate [Carafate 1 GM (*)] 1 gm PO ACHS #40 tab Report Scribed for: Donald Sharma Report Scribed by: Barbie Meyer Date of Report: 01/12/18 Time of Report: 20:37 <Donald Sharma - Last Filed: 01/12/18 20:37>
[2018-01-12 20:15] LABS: PLATELET COUNT 88 10^3/uL (150-400)
[2018-01-12 23:12] VITALS: BP 130/72
== END 2018-01-12 23:10 | disposition home or self-care (01) ==
DX: K29.00 Acute gastritis without bleeding (principal); K83.8 Other specified diseases of biliary tract; E86.9 Volume depletion, unspecified; Z87.891 Personal history of nicotine dependence
CPT/HCPCS: 96374; J2270; J2405

== ENCOUNTER 2018-04-08 18:03 | Emergency (ER) | payer OTHER ==
[2018-04-08] MEDS ORDERED: NS 1,000 ML IV ONE (18:49)
[2018-04-08] MEDS ORDERED: ONDANSETRON 4 MG/2 ML VIAL IVP ONE (19:15)
[2018-04-08] MEDS ORDERED: ONDANSETRON 4 MG/2 ML VIAL ONE (19:18)
[2018-04-08 19:24] LABS: PLATELET COUNT 108 10^3/uL (150-400)
--- NOTE | 2018-04-08 19:25 | EDPHY ---
H & P Time Seen by Provider: 04/08/18 18:46 HPI/ROS: HPI Abdominal pain. 22-year-old female by private vehicle with her . This patient reports right-sided and right lower quadrant abdominal pain, onset this morning. She describes the pain as a dull ache. She reports that it has been worsening somewhat through the day. She states that her last meal was at 2:00 p.m. Today. She has a prior history of biliary atresia. She has had her gallbladder removed. She has had some nausea but no vomiting. Denies diarrhea. No bloody or melenic stool. ROS: Constitutional: No fever, no chills. No weakness. Eyes: No discharge. No changes in vision. ENT: No sore throat. No nasal congestion or rhinorrhea. Respiratory: No cough. No shortness of breath. Cardiac: No chest pain, no palpitations. Gastrointestinal: As above, no vomiting, no diarrhea. Genitourinary: No hematuria. No dysuria or increased frequency with urination. Musculoskeletal: No back pain. No neck pain. No myalgias or arthralgias. Skin: No rashes. Neurological: No headache. No focal weakness or altered sensation. Past medical history: Splenic arterial embolism, biliary atresia, portal hypertension, peptic ulcer disease, ovarian varices. Social history: Nonsmoker. Here with significant other, no alcohol. Physical Exam: General Appearance: Alert, no distress. This patient is responding to questions appropriately and in full sentences. This patient appears well- hydrated and well-nourished. Eyes: Pupils equal and round no pallor or injection. No lid edema, erythema or injection. ENT, Mouth: Mucous membranes are moist. The pharyngeal tissues are unremarkable. No edema or swelling. No asymmetry suggestive of abscess. No erythema or exudates. Respiratory: There are no retractions, lungs are clear to auscultation with good air movement bilaterally. Cardiovascular: Regular rate and rhythm. No murmur. Gastrointestinal: Abdomen is soft with vague right mid and lower quadrant tenderness on palpation, no masses, bowel sounds normal. No focal tenderness at McBurney's point. No Palmer sign. Neurological: Motor sensory function is grossly intact. Cranial nerves are normal. Gait is normal. Skin: Warm and dry, no rashes. Musculoskeletal: Neck is supple and nontender. Extremities are symmetrical. All joints range without pain or impingement. Psychiatric: No agitation. No depression. Database: EKG: Imaging: CT abdomen with IV contrast: Essentially unchanged from previous study November of this year. No acute pathology. Appendix well visualized and normal. Results were discussed with staff radiologist Dr. Karsten Shanks. Procedures: Emergency department course: IV was placed. Triage vital signs reviewed and are normal. She was started on IV normal saline with 500 cc to 1 L to be over the next hour. She was initially given 4 mg of IV morphine and 4 mg of IV Zofran for pain and nausea. She consents to CT imaging to evaluate for appendicitis. Blood work reviewed and compared to previous testing. LFTs, anemia all stable and baseline. 9:00 p.m., patient re-evaluated. She appears comfortable at this time. I discussed the results of her blood work, urinalysis and CT scan. Repeat abdominal exam she is soft, nontender nondistended. She has bowel sounds. She feels comfortable going home at this time with her significant other and I feel she is safe for discharge. Follow-up and return to emergency department precautions have been thoroughly reviewed with her. All of her questions were answered. She was discharged from the emergency department in good condition. Differential Diagnosis: The differential diagnosis on this patient includes but is not limited to appendicitis, colitis, volvulus, urinary tract infection. This represents a partial list of diagnoses considered. These considerations are based on history , physical exam, past history, reassessment and diagnostic testing. Smoking Status: Current some day smoker Constitutional: Initial Vital Signs Temperature (C) 37 C 04/08/18 18:17 Heart Rate 91 04/08/18 18:17 Respiratory Rate 16 04/08/18 18:17 Blood Pressure 132/78 H 04/08/18 18:17 O2 Sat (%) 96 04/08/18 18:17 O2 Delivery Mode Room Air Allergies/Adverse Reactions: acetaminophen Allergy (Verified 01/12/18 19:38) Home Medications: Medication Instructions Recorded Oxcarbazepine 04/08/18 Medical Decision Making - Data Points Laboratory Results: Laboratory Results 04/08/18 19:01 04/08/18 19:01 04/08/18 04/08/18 04/08/18 19:01 19:01 19:01 WBC 5.26 10^3/uL 10^3/uL (3.80-9.50) RBC 3.53 10^6/uL L 10^6/uL (4.18-5.33) Hgb 12.0 g/dL L g/dL (12.6-16.3) Hct 34.7 % L % (38.0-47.0) MCV 98.3 fL fL (81.5-99.8) MCH 34.0 pg pg (27.9-34.1) MCHC 34.6 g/dL g/dL (32.4-36.7) RDW 13.0 % % (11.5-15.2) Plt Count 108 10^3/uL L 10^3/uL (150-400) MPV 12.7 fL H fL (8.7-11.7) Neut % (Auto) 62.0 % % (39.3-74.2) Lymph % (Auto) 25.3 % % (15.0-45.0) [place] % (Auto) 10.6 % % (4.5-13.0) Eos % (Auto) 1.5 % % (0.6-7.6) Baso % (Auto) 0.4 % % (0.3-1.7) Nucleat RBC Rel Count 0.0 % % (0.0-0.2) Absolute Neuts (auto) 3.26 10^3/uL 10^3/uL (1.70-6.50) Absolute Lymphs (auto) 1.33 10^3/uL 10^3/uL (1.00-3.00) Absolute Monos (auto) 0.56 10^3/uL 10^3/uL (0.30-0.80) Absolute Eos (auto) 0.08 10^3/uL 10^3/uL (0.03-0.40) Absolute Basos (auto) 0.02 10^3/uL 10^3/uL (0.02-0.10) Absolute Nucleated RBC 0.00 10^3/uL 10^3/uL (0-0.01) Immature Gran % 0.2 % % (0.0-1.1) Immature Gran # 0.01 10^3/uL 10^3/uL (0.00-0.10) Sodium 137 mEq/L mEq/L (135-145) Potassium 3.7 mEq/L mEq/L (3.3-5.0) Chloride 106 mEq/L mEq/L (97-110) Carbon Dioxide 23 mEq/l mEq/l (22-31) Anion Gap 8 mEq/L mEq/L (8-16) BUN 11 mg/dL mg/dL (7-23) Creatinine 0.4 mg/dL L mg/dL (0.6-1.0) Estimated GFR > 60 Glucose 84 mg/dL mg/dL (70-100) Calcium 8.8 mg/dL mg/dL (8.5-10.4) Total Bilirubin 1.6 mg/dL H mg/dL (0.1-1.4) Conjugated Bilirubin 0.8 mg/dL H mg/dL (0.0-0.5) Unconjugated Bilirubin 0.8 mg/dL mg/dL (0.0-1.1) AST 123 IU/L H IU/L (14-46) ALT 70 IU/L H IU/L (9-52) Alkaline Phosphatase 551 IU/L H IU/L (38-126) Total Protein 6.9 g/dL g/dL (6.3-8.2) Albumin 3.3 g/dL L g/dL (3.5-5.0) Lipase 171 IU/L IU/L (23-300) Beta HCG, Qual NEGATIVE Urine Color Urine Appearance Urine pH Ur Specific [place] Urine Protein Urine Ketones Urine Blood Urine Nitrate Urine Bilirubin Urine Urobilinogen Ur Leukocyte Esterase Urine Glucose 04/08/18 18:15 WBC RBC Hgb Hct MCV MCH MCHC RDW Plt Count MPV Neut % (Auto) Lymph % (Auto) [place] % (Auto) Eos % (Auto) Baso % (Auto) Nucleat RBC Rel Count Absolute Neuts (auto) Absolute Lymphs (auto) Absolute Monos (auto) Absolute Eos (auto) Absolute Basos (auto) Absolute Nucleated RBC Immature Gran % Immature Gran # Sodium Potassium Chloride Carbon Dioxide Anion Gap BUN Creatinine Estimated GFR Glucose Calcium Total Bilirubin Conjugated Bilirubin Unconjugated Bilirubin AST ALT Alkaline Phosphatase Total Protein Albumin Lipase Beta HCG, Qual Urine Color [place] Urine Appearance CLEAR Urine pH 5.0 (5.0-7.5) Ur Specific [place] 1.024 (1.002-1.030) Urine Protein NEGATIVE (NEGATIVE) Urine Ketones NEGATIVE (NEGATIVE) Urine Blood NEGATIVE (NEGATIVE) Urine Nitrate NEGATIVE (NEGATIVE) Urine Bilirubin NEGATIVE (NEGATIVE) Urine Urobilinogen 4.0 EU H EU (0.2-1.0) Ur Leukocyte Esterase NEGATIVE (NEGATIVE) Urine Glucose NEGATIVE (NEGATIVE) Medications Given: Discontinued Medications Sodium Chloride (Ns) 1,000 mls @ 0 mls/hr IV ONCE ONE; Wide Open PRN Reason: Protocol Stop: 04/08/18 18:50 Last Admin: 04/08/18 18:59 Dose: 1,000 mls Morphine Sulfate (Morphine) 4 mg IVP EDNOW ONE Stop: 04/08/18 19:16 Last Admin: 04/08/18 19:27 Dose: 4 mg Morphine Sulfate (Morphine) 4 mg IVP EDNOW ONE Stop: 04/08/18 20:40 Last Admin: 04/08/18 20:41 Dose: 4 mg Ondansetron HCl (Zofran) 4 mg IVP EDNOW ONE Stop: 04/08/18 19:16 Last Admin: 04/08/18 19:27 Dose: 4 mg Departure - Departure Disposition: Home, Routine, Self-Care Clinical Impression: Abdominal pain Condition: Good Instructions: Abdominal Pain (ED), Anemia (ED) Additional Instructions: Read and follow provided instructions. Follow-up with your primary care physician on Wednesday for re-evaluation as discussed. Return to the emergency department for worsening pain, vomiting, fever, blood in your stool or other serious concerns. Referrals: Jeremiah Sifuentes [Primary Care Provider] - As per Instructions
[2018-04-08] MEDS ORDERED: IOPAMIDOL (ISOVUE-300) 100 ML BTL ONE (19:51)
[2018-04-08 21:33] VITALS: BP 114/60
== END 2018-04-08 21:34 | disposition home or self-care (01) ==
DX: R10.9 Unspecified abdominal pain (principal); E86.9 Volume depletion, unspecified; F17.200 Nicotine dependence, unspecified, uncomplicated
CPT/HCPCS: 96374; J2270; J2405; Q9967

== ENCOUNTER 2018-07-23 18:46 | Emergency (ER) | payer OTHER ==
[2018-07-23] MEDS ORDERED: ONDANSETRON 4 MG/2 ML VIAL IVP ONE (19:13)
[2018-07-23 19:23] LABS: PLATELET COUNT 105 10^3/uL (150-400)
[2018-07-23] MEDS ORDERED: NS 1,000 ML IV ONE (19:47)
--- NOTE | 2018-07-23 20:07 | EDPHY ---
H & P Stated Complaint: Menstrual cramps today;also has a medication question - Personal History LMP (Females 10-55): Now Current Tetanus Diphtheria and Acellular Pertussis (TDAP): Yes Tetanus Vaccine Date: < 10 years - Medical/Surgical History Hx Asthma: No Hx Chronic Respiratory Disease: No Hx Diabetes: No Hx Cardiac Disease: No Hx Renal Disease: No Hx Cirrhosis: Yes Hx Alcoholism: Yes Hx HIV/AIDS: No Hx Splenectomy or Spleen Trauma: No Other PMH: spleenic arterial embolism/kasai procedure/biliary atresia, portal hypertension, peptic ulcer disease, ovarian varices, anxiety - Social History Smoking Status: Former smoker Time Seen by Provider: 07/23/18 18:53 HPI/ROS: Chief complaint: Heavy menstrual cycle History of present illness: This is a 23-year-old female who presents to the emergency department for a heavy menstrual cycle. Patient states she rarely gets her menstrual cycle. She has been working with an OBGYN recently to evaluate her hormones. She reports the onset of her cycle yesterday. She reports heavy flow and pain. She denies other associated signs or symptoms including systemic symptoms such as fatigue, lightheadedness or dizziness. Given her multiple medical problems including thrombocytopenia she is concerned and presents for evaluation. Review of systems: A 10 point review of systems was obtained and other than described above was negative. (Martínez Spaulding) - Physical Exam Exam: General Appearance: Alert, nontoxic. Eyes: Pupils equal and round no pallor or injection. ENT, Mouth: Mucous membranes moist. Respiratory: There are no retractions, lungs are clear to auscultation. Cardiovascular: Regular rate and rhythm. Gastrointestinal: Abdomen is soft and non tender, no masses, bowel sounds normal. Neurological: Alert and oriented x4. Strength and sensation intact and symmetrical. Skin: Warm and dry, no rashes. Musculoskeletal: Neck is supple non tender. Extremities are symmetrical, full range of motion. Psychiatric: Patient is oriented X 3, there is no agitation. (Martínez Spaulding) Constitutional: Initial Vital Signs Temperature (C) 36.8 C 07/23/18 18:47 Heart Rate 86 12 18:47 Respiratory Rate 18 07/23/18 18:47 Blood Pressure 144/90 H 12 18:47 O2 Sat (%) 97 12 18:47 O2 Delivery Mode Room Air Allergies/Adverse Reactions: acetaminophen Allergy (Verified 12/08/18 18:51) Home Medications: Medication Instructions Recorded Oxcarbazepine 04/08/18 hydrOXYzine HCL [Vistaril] 50 mg PO 07/23/18 Medical Decision Making ED Course/Re-evaluation: Patient is discussed with my secondary supervising physician Dr. Camops Aggarwal. Patient presents to the emergency department for heavy menstrual cycle. She is nontoxic. Vital signs are stable. CBC shows a mild thrombocytopenia of 105 , she states this is a higher level than she usually has. Her H&H is very mildly decreased. She is not . She is symptomatically treated and is feeling much better. She is given reassurance. She is asked to follow up with her OBGYN for recheck. She is given strict return precautions. The patient voiced understanding and agreement with plan. (Martínez Spaulding) Differential Diagnosis: Included but not limited normal menstrual cycle, menorrhagia, coagulopathy ( Martínez Spaulding) - Data Points Laboratory Results: Laboratory Results 07/23/18 19:07 07/23/18 19:07 Medications Given: Discontinued Medications Sodium Chloride (Ns) 1,000 mls @ 0 mls/hr IV EDNOW ONE; Wide Open PRN Reason: Protocol Stop: 07/23/18 19:48 Last Admin: 07/23/18 19:50 Dose: 1,000 mls Morphine Sulfate (Morphine) 4 mg IVP EDNOW ONE Stop: 07/23/18 19:02 Last Admin: 07/23/18 19:17 Dose: 4 mg Ondansetron HCl (Zofran) 4 mg IVP EDNOW ONE Stop: 07/23/18 19:14 Last Admin: 07/23/18 19:15 Dose: 4 mg Departure - Departure Disposition: Home, Routine, Self-Care Clinical Impression: Menorrhagia Qualifiers: Menorrahagia type: with regular cycle Qualified Code(s): N92.0 - Excessive and frequent menstruation with regular cycle Condition: Good Instructions: Menorrhagia (ED) Additional Instructions: Follow-up with your doctor on Wednesday for recheck If symptoms worsen or new symptoms develop return to the emergency department for recheck Referrals: Araceli Mcneil MD [Primary Care Provider] - As per Instructions
[2018-07-23 20:27] VITALS: BP 118/78
== END 2018-07-23 20:27 | disposition home or self-care (01) ==
DX: N92.0 Excessive and frequent menstruation with regular cycle (principal); E86.9 Volume depletion, unspecified
CPT/HCPCS: 96374; J2270; J2405